=== PATIENT | female | born 1950 | race Caucasian/White ===

== ENCOUNTER 2021-09-10 21:25 | Inpatient (IN) | payer MEDICARE ==
[~2021-09-10] VITALS: Ht 162.6 cm; Wt 150.6 kg
[2021-09-10] MEDS ORDERED: IV NORMAL SALINE 1000ML BAG 1,000 ML IV ONE (22:00)
[2021-09-10] MEDS ORDERED: ACETAMINOPHEN 500 MG TABLET PO ONE (22:30)
[2021-09-10 22:32] LABS: BASO # 0.2 x10^3/uL (0.0-0.2); BASO % 1 % (0-3); EOS # 0.1 x10^3/uL (0.0-0.7); EOS % 0 % (0-3); HEMATOCRIT 37.3 % (36.0-47.0); HEMOGLOBIN 12.3 g/dL (12.0-15.5); LYMPH # 0.4 x10^3/uL (1.0-4.8); LYMPH % 2 % (24-48); MEAN CORPUSCULAR HEMOGLOBIN 28 pg (25-35); MEAN CORPUSCULAR HGB CONC 33 g/dL (31-37); MEAN CORPUSCULAR VOLUME 86 fL (79-100); MONO # 0.5 x10^3/uL (0.0-1.1); MONO % 2 % (0-9); NEUT # 23.1 x10^3/uL (1.8-7.7); NEUT % 95 % (31-73); PLATELET COUNT 293 x10^3/uL (140-400); RED BLOOD COUNT 4.36 x10^6/uL (3.50-5.40); RED CELL DISTRIBUTION WIDTH 17.3 % (11.5-14.5); WHITE BLOOD COUNT 24.3 x10^3/uL (4.0-11.0)
--- NOTE | 2021-09-10 22:41 | RAD ---
Exam: Chest one view INDICATION: Altered mental status TECHNIQUE: Frontal view of the chest Comparisons: None FINDINGS: The cardiomediastinal silhouette and pulmonary vessels are within normal limits. There is elevation of the right hemidiaphragm. No pleural effusion. IMPRESSION: No acute pulmonary process. Electronically signed by: Jerri Bateman MD (09/10/2021 10:38 PM) DAIJA
[2021-09-10] MEDS ORDERED: PIPERACILLIN/TAZOBACTAM 3.375 GM in IV NORMAL SALINE 50ML 50 ML IV ONE (22:45)
[2021-09-10 22:46] LABS: CALCIUM 8.9 mg/dL (8.5-10.1); CREATININE 1.5 mg/dL (0.6-1.0); GFR 34.4; POTASSIUM 3.7 mmol/L (3.5-5.1)
[2021-09-10 22:48] LABS: BASE EXCESS COOX 5 mmol/L (-3-3); CORRECTED PCO2 COOX 42 mmHg; CORRECTED PH COOX 7.45; CORRECTED PO2 COOX 81 mmHg; HCO3 COOX 28 mmol/L (21-28); METHEMOGLOBIN 0.2 % (0.0-1.9); OXYHEMOGLOBIN 93.6 %; SAT O2 COOX 94 % (92-99)
[2021-09-10 22:48] LABS: PROTHROMBIN TIME PATIENT 14.5 SEC (11.7-14.0)
[2021-09-10 22:54] LABS: BACTERIA,URINE FEW /HPF (0-FEW); HYALINE CASTS, URINE MODERATE /HPF; RBC,URINE 0 /HPF (0-2); WBC,URINE OCC /HPF (0-4)
[2021-09-10] MEDS ORDERED: VANCOMYCIN 2 GM in IV NORMAL SALINE 500ML BAG 500 ML IV ONE (23:00)
[2021-09-10 23:01] LABS: ALBUMIN 3.1 g/dL (3.4-5.0); ALBUMIN/GLOBULIN RATIO 0.7 (1.0-1.7); TOTAL BILIRUBIN 0.7 mg/dL (0.2-1.0); TOTAL PROTEIN 7.8 g/dL (6.4-8.2)
--- NOTE | 2021-09-11 | PHYS DOC ---
Past Medical History Past Surgical History: Other Additional Past Surgical Histo: UNKNOWN AT THIS TIME (WILBERTO MCNEIL APRN) Smoking Status: Unknown if ever smoked Alcohol Use: None (WILBERTO MCNEIL APRN) General Adult EDM: Chief Complaint: ALTERED MENTAL STATUS HPI: HPI: Patient is a 71-year-old female with brought to the emergency department by EMS transport from [facility] for altered mental status per supervisor building maintenance transport report. Interlocker did not have any further healthcare report to give. States they were not given a full report from long term staff prior to transfer to the emergency department. Patient is on 4 L per nasal cannula, supervisor building maintenance reports this is her normal oxygen regimen. Patient is alert to self only. Patient denies complaints of pain or discomfort. Per long term record patient has a history of type 2 diabetes, severe obesi ty, hypertension, hyperlipidemia, restless leg syndrome, depressive disorder, asthma, chronic kidney disease, cellulitis of the lower extremities, unsteadiness on feet, need for assistance with personal care and ADLs, difficulty in walking, vaginal Puja's, pain in left foot. Per patient's brother who is at bedside patient was admitted to the rehab facility from her home for cellulitis of bilateral lower extremities, and difficulty walking. Patient's brother states that her cellulitis seems to look worse than normal. (WILBERTO MCNEIL APRN) Review of Systems: Review of Systems: 14 body systems of review of systems have been reviewed. See HPI for pertinent positives and negative responses, otherwise all other systems are negative, nonpertinent or noncontributory. Constitutional: Negative except as outlined in HPI above. Skin: Negative except as outlined in HPI above. Eyes: Negative except as outlined in HPI above. HENT: Negative except as outlined in HPI above. Respiratory: Negative except as outlined in HPI above. Cardiovascular: Negative except as outlined in HPI above. GI: Negative except as outlined in HPI above. : Negative except as outlined in HPI above. Musculoskeletal: Negative except as outlined in HPI above. Integument: Negative except as outlined in HPI above. Neurologic: Negative except as outlined in HPI above. Endocrine: Negative except as outlined in HPI above. Lymphatic: Negative except as outlined in HPI above. Psychiatric: Negative except as outlined in HPI above. (WILBERTO MCNEIL APRN) Heart Score: C/O Chest Pain: No Risk Factors: Risk Factors: DM, Current or recent (<one month) smoker, HTN, HLP, family hi story of CAD, obesity. Risk Scores: Score 0 - 3: 2.5% MACE over next 6 weeks - Discharge Home Score 4 - 6: 20.3% MACE over next 6 weeks - Admit for Clinical Observation Score 7 - 10: 72.7% MACE over next 6 weeks - Early Invasive Strategies (WILBERTO MCNEIL APRN) Current Medications: Current Medications Medications (Trade) Dose Ordered Sig/Moiz Start Time Stop Time Status Last Admin Dose Admin Acetaminophen (Tylenol) 1,000 mg 1X ONCE 09/10/21 22:30 09/10/21 22:31 DC 09/10/21 22:30 1,000 MG Piperacillin Sod/ Tazobactam Sod 3.375 gm/Sodium Chloride 50 ml @ 100 mls/hr 1X ONCE 09/10/21 22:45 09/10/21 23:14 DC 09/10/21 23:44 100 MLS/HR Sodium Chloride 1,000 ml @ 1,000 mls/hr 1X ONCE 09/10/21 22:00 09/10/21 22:59 DC 09/10/21 22:22 1,000 MLS/HR Vancomycin HCl (Vanco Per Pharmacy) 1 each PRN DAILY PRN 09/10/21 22:45 Vancomycin HCl 2 gm/Sodium Chloride 500 ml @ 250 mls/hr ONCE ONCE 09/10/21 23:00 09/11/21 00:59 (WILBERTO MCNEIL APRN) Allergies: Allergies: Allergies Coded Allergies Type Severity Reaction Last Updated Verified No Known Drug Allergies 09/10/21 No (WILBERTO MCNEIL APRN) Physical Exam: PE: Constitutional: Well developed, well nourished, no acute distress, non-toxic appearance. 71-year-old female in no apparent distress. HENT: Normocephalic, atraumatic. Oropharynx is nonerythematous, no deep tissue infectious process appreciated, oral mucosa is sticky, bilateral TMs are intact and within normal limits. Patient is speaking in normal voice tones. Eyes: Conjunctiva normal, no discharge. No scleral icterus appreciated. Neck: Normal range of motion, no stridor. There is no nuchal rigidity, no meningismus signs. Cardiovascular: No cyanosis appreciated, distal cap refill less than 2 seconds. Tachycardic heart rate Lungs & Thorax: Patient is in no respiratory distress, no audible adventitious lung sounds appreciated. Lung sounds are clear to auscultation all lung rueda. Abdomen: Nontender, no abnormalities noted. Abdomen round, soft, severe obesity, BMI 68.8 Skin: Warm, dry, no erythema, no rash. See extremity note for focused skin examination. Back: No tenderness, no deformities. Extremities: No tenderness, no cyanosis, no clubbing, ROM intact, no edema. Bilateral lower extremities edematous, erythematous, will hot to touch, has bandages from cellulitis treatment at rehab center. 1+ dorsalis pedal pulses bilaterally, distal cap refill less than 2 seconds bilateral lower extremities. Neurologic: Alert and oriented X 3, normal motor function, normal sensory function, no focal deficits noted. Psychologic: Affect normal, judgement normal, mood normal. (WILBERTO MCNEIL APRN) Current Patient Data: Labs: Laboratory Tests Test 09/10/21 21:40 09/10/21 22:18 09/10/21 22:30 09/10/21 22:35 Urine Collection Type U cath Urine Color (Auto) Yellow Urine Turbidity Hazy Urine pH (Auto) 5.0 (<5.0-8.0) Urine Specific Yolyn 1.022 (1.000-1.030) Urine Protein (Auto) Negative mg/dL (Negative) Urine Glucose (Auto)(UA) Negative mg/dL (Negative) Urine Ketones (Auto) Trace mg/dL (Negative) Urine Blood (Auto) Negative (Negative) Urine Nitrite Negative (Negative) Urine Bilirubin (Auto) Negative (Negative) Urine Urobilinogen (Auto) Normal mg/dL (Normal) Urine Leukocyte Esterase (Auto) Negative (Negative) Urine RBC 0 /HPF (0-2) Urine WBC Occ /HPF (0-4) Urine Squamous Epithelial Cells Mod /LPF Urine Bacteria Few /HPF (0-FEW) Urine Hyaline Casts Moderate /HPF Urine Mucus Marked /LPF White Blood Count 24.3 x10^3/uL (4.0-11.0) H Red Blood Count 4.36 x10^6/uL (3.50-5.40) Hemoglobin 12.3 g/dL (12.0-15.5) Hematocrit 37.3 % (36.0-47.0) Mean Corpuscular Volume 86 fL (79-100) Mean Corpuscular Hemoglobin 28 pg (25-35) Mean Corpuscular Hemoglobin Concent 33 g/dL (31-37) Red Cell Distribution Width 17.3 % (11.5-14.5) H Platelet Count 293 x10^3/uL (140-400) Neutrophils (%) (Auto) 95 % (31-73) H Lymphocytes (%) (Auto) 2 % (24-48) L Monocytes (%) (Auto) 2 % (0-9) Eosinophils (%) (Auto) 0 % (0-3) Basophils (%) (Auto) 1 % (0-3) Neutrophils # (Auto) 23.1 x10^3/uL (1.8-7.7) H Lymphocytes # (Auto) 0.4 x10^3/uL (1.0-4.8) L Monocytes # (Auto) 0.5 x10^3/uL (0.0-1.1) Eosinophils # (Auto) 0.1 x10^3/uL (0.0-0.7) Basophils # (Auto) 0.2 x10^3/uL (0.0-0.2) Prothrombin Time 14.5 SEC (11.7-14.0) H Prothrombin Time INR 1.2 (0.8-1.1) H Sodium Level 139 mmol/L (136-145) Potassium Level 3.7 mmol/L (3.5-5.1) Chloride Level 97 mmol/L (98-107) L Carbon Dioxide Level 31 mmol/L (21-32) Anion Gap 11 (6-14) Blood Urea Nitrogen 24 mg/dL (7-20) H Creatinine 1.5 mg/dL (0.6-1.0) H Estimated GFR (Cockcroft-Gault) 34.4 BUN/Creatinine Ratio 16 (6-20) Glucose Level 141 mg/dL (70-99) H Lactic Acid Level 2.6 mmol/L (0.4-2.0) H Calcium Level 8.9 mg/dL (8.5-10.1) Total Bilirubin 0.7 mg/dL (0.2-1.0) Aspartate Amino Transferase (AST) 22 U/L (15-37) Alanine Aminotransferase (ALT) 19 U/L (14-59) Alkaline Phosphatase 86 U/L (46-116) Creatine Kinase 194 U/L (26-192) H SJ-Vvy-E-Type Natriuretic Peptide 504 pg/mL (0-124) H Total Protein 7.8 g/dL (6.4-8.2) Albumin 3.1 g/dL (3.4-5.0) L Albumin/Globulin Ratio 0.7 (1.0-1.7) L Lipase 97 U/L (73-393) Troponin I High Sensitivity 47 ng/L (4-50) O2 Saturation 94 % (92-99) Arterial Blood pH Pending Arterial Blood pH (Temp corrected) 7.45 Arterial Blood pCO2 at Patient Temp Pending Arterial Blood pCO2 (Temp correct) 42 mmHg Arterial Blood pO2 at Patient Temp Pending Arterial Blood pO2 (Temp corrected) 81 mmHg Arterial Blood HCO3 28 mmol/L (21-28) Arterial Blood Base Excess 5 mmol/L (-3-3) H Oxyhemoglobin 93.6 % Methemoglobin 0.2 % (0.0-1.9) Carbon Monoxide, Quantitative 0.4 % (0.0-1.9) FiO2 36 Test 09/10/21 22:45 Ammonia < 10 mcmol/L (11-34) L Laboratory Tests 09/10/21 22:18 Laboratory Tests 09/10/21 22:18 Vital Signs: Vital Signs Date Time Temp Pulse Resp B/P (MAP) Pulse Ox O2 Delivery O2 Flow Rate FiO2 09/10/21 21:32 103.3 111 42 155/74 (101) 96 Nasal Cannula 4.0 103.3 (IWLBERTO MCNEIL APRN) EKG: EKG: EKG performed at 2237 incomprehensible, needs repeated. (WILBERTO MCNEIL APRN) Radiology/Procedures: Radiology/Procedures: REASON: Altered mental status PROCEDURE: PORTABLE CHEST 1V Exam: Chest one view INDICATION: Altered mental status TECHNIQUE: Frontal view of the chest Comparisons: None FINDINGS: The cardiomediastinal silhouette and pulmonary vessels are within normal limits. There is elevation of the right hemidiaphragm. No pleural effusion. IMPRESSION: No acute pulmonary process. Electronically signed by: Jerri Bateman MD (09/10/2021 10:38 PM) [facility] STATUS: REG ER ORD. PHYSICIAN: WILBERTO MCNEIL APRN REASON: Altered mental status PROCEDURE: CT HEAD WO CONTRAST INDICATION: Reason: Altered mental status / Spl. Instructions: / History: COMPARISON: None. TECHNIQUE: Axial CT images obtained through the head without intravenous contrast. One or more of the following individualized dose reduction techniques were utilized for this examination: 1. Automated exposure control; 2. Adjustment of the mA and/or kV according to patient size; 3. Use of iterative reconstruction technique. FINDINGS: No intracranial hemorrhage. No significant midline shift. Ventricles and sulci are globally prominent. Scattered foci of low attenuation within the white matter. IMPRESSION: * No acute intracranial hemorrhage. * Scattered regions of low attenuation within the white matter. Non-specific in nature but a common finding and frequently secondary to small vessel ischemic disease. * Prominence of ventricles and sulci which can be seen with age-related volume loss. * Some regions are limited secondary to patient motion. Electronically signed by: Tee Staley MD (09/11/2021 12:05 AM) [id number] (WILBERTO MCNEIL APRN) Course & Med Decision Making: Course & Med Decision Making Pertinent Labs and Imaging studies reviewed. (See chart for details) 71-year-old female, vital signs reviewed, presents to the emergency department f or altered mental status. Physical examination concerning as patient has altered mental status, patient does have fever 103.4 axillary, patient has excoriated. Area, bilateral lower extremities below knees are reddened full circumferential, patient is being treated for cellulitis at rehab center. Will order septic work-up. IV saline, p.o. Tylenol for fever. Upon reevaluation of patient, patient's fever is 100.4, patient remains tachycardic at 103 bpm, other vital signs are within normal limits, patient remains at 96% on her 4 L per nasal cannula home dosing regimen, patient's labs concerning for sepsis, patient's urine is not infected, suspicious for cellulitis as source. The patient's chest x-ray and CT head were nonconcerning. Zosyn and vancomycin per pharmacy were ordered by ED attending physician Dr. Salinas. Discussed with patient and patient's brother at bedside recommended a dmission to telemetry unit, patient and patient's brother are amenable to admission planning. Patient will be admitted to inpatient management physician Dr. Benjamin. Patient is currently awaiting telemetry bed assignment from warehouse packer, EKG pending. (WILBERTO MCNEIL APRN) Dragon Disclaimer: Dragon Disclaimer: This electronic medical record was generated, in whole or in part, using a voice recognition dictation system. (WILBERTO MCNEIL APRN) Departure Departure Impression: Primary Impression: Sepsis Qualified Codes: A41.9 - Sepsis, unspecified organism Additional Impressions: AMS (altered mental status) Qualified Codes: R41.82 - Altered mental status, unspecified Bilateral lower leg cellulitis Disposition: ADMITTED INPATIENT Admitting Physician: HIMCaden (Admit to telemetry unit to Dr. Benjamin.) (WILBERTO MCNEIL APRN) Admitting Physician: ROSMERY (Dr. Brizuela) (CANDY SALINAS DO) Condition: GUARDED Referrals: [facility] APRN (PCP) WILBERTO MCNEIL APRN September 11, 2021 00:00 CANDY SALINAS DO September 11, 2021 03:56
[2021-09-11 00:05] LABS: INFLUENZA A PATIENT NEGATIVE (NEGATIVE); INFLUENZA B PATIENT NEGATIVE (NEGATIVE)
--- NOTE | 2021-09-11 00:08 | RAD ---
INDICATION: Reason: Altered mental status / Spl. Instructions: / History: COMPARISON: None. TECHNIQUE: Axial CT images obtained through the head without intravenous contrast. One or more of the following individualized dose reduction techniques were utilized for this examinat ion: 1. Automated exposure control; 2. Adjustment of the mA and/or kV according to patient size; 3 . Use of iterative reconstruction technique. FINDINGS: No intracranial hemorrhage. No significant midline shift. Ventricles and sulci are globally prominent. Scattered foci of low attenuation within the white matter. IMPRESSION: * No acute intracranial hemorrhage. * Scattered regions of low attenuation within the white matter. Non-specific in nature but a common finding and frequently secondary to small vessel ischemic disease. * Prominence of ventricles and sulci which can be seen with age-related volume loss. * Some regions are limited secondary to patient motion. Electronically signed by: Tee Staley MD (09/11/2021 12:05 AM) [id number]
[2021-09-11] MEDS ORDERED: ACETAMINOPHEN 325 MG TABLET. PO PRN (00:30)
[2021-09-11] MEDS ORDERED: IV NORMAL SALINE 1000ML BAG 1,000 ML IV SCH (00:30)
[2021-09-11 03:00] VITALS: BP 139/68
[2021-09-11] MEDS: VANCOMYCIN PER PHARMACY MC PRN (03:25)
--- NOTE | 2021-09-11 03:26 | NUR ---
Pharmacy Vancomycin Dosing Note S:Consulted to monitor and dose vancomycin started 09/10/21. O:RADHA SOLIS is a 71 year old F with Cellulitis Sepsis . Height: 5 feet, 4 inches Weight: 181.8 kg [place] Body Weight: 54.70 Adjusted Body Weight: 105.54 Dosing Weight: Other Antibiotics: ZOSYN 3.375 X 1 09/10 LABS: Last BUN: 24 Last Creatinine: 1.5 Creatinine Clearance: 58 mL/min Last WBC: 24.3 Last Procalcitonin: Tmax (past 24 hours): 103.3 Microbiology: 09/10 BCX PENDING I/O: Drug Levels: Last level: on at Last dose given 09/11/21 at 0100 Vancomycin Dosing: Loading Dose: 2000 mg x1 Dosing Weight: Target Trough: 15-20 A: Based on: WEIGHT/RENAL FUNCTION AND USING ONLINE DOSING CALCULATOR, P: 1. INITIATE Vancomycin 1500 mg IV q18h AFTER 2000 MG LOADING DOSE 2. Follow up Trough level on 09/12/21 at 1230 3. Pharmacy will continue to monitor, follow and adjust therapy as needed. LUIS PEPE [facility], 09/11/21 [id number]
--- NOTE | 2021-09-11 05:51 | EKG ---
[facility] [address] [place] [address] Test Date: 2021-09-11 Test Time: 00:26:04 Pat Name: RADHA SOLIS Department: Room: [facility] Gender: F Care Team Coordinator Scheduler: : 1950 Requested By: WILBERTO MCNEIL Order Number: [id number] Reading MD: Cm Maguire MD Measurements Intervals [place] Rate: 108 P: 28 [place]: 170 QRS: -35 QRSD: 80 T: 34 QT: 304 QTc: 411 Interpretive Statements SINUS TACHYCARDIA Atrial fibrillation with rapid ventricular response Electronically Signed On 09-18-2021 9:45:51 CDT by Cm Maguire MD
[2021-09-11] MEDS ORDERED: DOCU-109 PO (06:34)
[2021-09-11] MEDS ORDERED: CARV6.2511 PO (06:34)
[2021-09-11] MEDS ORDERED: EZET10TA20 PO (06:34)
[2021-09-11] MEDS ORDERED: fentaNYL PF VIAL 100 MCG/2 ML VIAL IVP PRN (06:45)
[2021-09-11] MEDS ORDERED: ONDANSETRON PF 4 MG/2 ML VIAL. IVP PRN (06:45)
[2021-09-11] MEDS ORDERED: DEXTROSE 50% 25 GM / 50ML DISP.SYRIN. IV PRN (06:45)
[2021-09-11] MEDS ORDERED: IV DEXTROSE 5% 250 ML BAG. IV PRN (06:45)
[2021-09-11 07:00] VITALS: BP 157/70
[2021-09-11] MEDS ORDERED: ONDA4TAB12 PO (07:22)
[2021-09-11] MEDS ORDERED: TAMO20TA PO (07:22)
[2021-09-11] MEDS ORDERED: HYDR-2765 PO (07:22)
[2021-09-11] MEDS ORDERED: VENL75CA6 PO (07:22)
[2021-09-11] MEDS ORDERED: ROPI1TAB4 PO (07:22)
[2021-09-11] MEDS ORDERED: TAMS0.4C97 PO (07:22)
[2021-09-11] MEDS ORDERED: LIDO1ADH63 TP (07:22)
[2021-09-11] MEDS ORDERED: FURO-68 PO (07:22)
[2021-09-11] MEDS ORDERED: SENN8.6T11 PO (07:22)
[2021-09-11] MEDS: INSULIN LISPRO 300 UNITS/3 ML VIAL. SQ SCH ×4 (07:30→21:00)
[2021-09-11] MEDS: LIDOCAINE (700MG/PATCH) PATCH. TP SCH ×2 (10:00→11:55)
--- NOTE | 2021-09-11 10:11 | PDOC1 ---
History and Physical Date of Service: DOS: DATE: 09/11/21 TIME: 10:11 Chief Complaint: Chief Complain: AMS, fever, ble wounds History of Present Illness: HPI: Patient is 71-year-old white female sent to the emergency room overnight from a [facility] due to altered mental status fever and sepsis. Patient has been admitted to the healthcare resort since early June for rehab, wound care and IV antibiotics for a chronic cellulitis. Patient unaware what antibiotic she is on could not find in records but she was certain it is an IV antibiotic. No PICC line in place. Apparently yesterday patient was notably altered febrile and requiring oxygen which is not normal for her. Was sent over to the emergency room. No much history will be obtained in the emergency room due to her mental status. I saw her this morning she was alert oriented x3. Complaining of pain all over. Does not remember much from yesterday. Reported to me she was initially sent to healthcare resort from [facility] few months ago. Has been on antibiotics with wound care and therapy but says she is not getting any better. Past Medical/Surgical History: PMH/PSH: type 2 diabetes, severe obesity, hypertension, hyperlipidemia, restless leg syndrome, depressive disorder, asthma, chronic kidney disease, cellulitis of the lower extremities, unsteadiness on feet Allergies: Allergies: Coded Allergies: No Known Drug Allergies (Unverified , 09/10/21) Family History: Family History: Diabetes Social History: Social History: Denies alcohol tobacco drug use Current Medications: Current Medications Current Medications Sodium Chloride 1,000 ml @ 1,000 mls/hr 1X ONCE IV Last administered on 09/10/21at 22:22; Start 09/10/21 at 22:00; Stop 09/10/21 at 22:59; Status DC Acetaminophen (Tylenol) 1,000 mg 1X ONCE PO Last administered on 09/10/21at 22:30; Start 09/10/21 at 22:30; Stop 09/10/21 at 22:31; Status DC Piperacillin Sod/ Tazobactam Sod 3.375 gm/Sodium Chloride 50 ml @ 100 mls/hr 1X ONCE IV Last administered on 09/10/21at 23:44; Start 09/10/21 at 22:45; Stop 09/10/21 at 23:14; Status DC Vancomycin HCl (Vanco Per Pharmacy) 1 each PRN DAILY PRN MC SEE COMMENTS Last administered on 09/11/21at 03:25; Start 09/10/21 at 22:45 Vancomycin HCl 2 gm/Sodium Chloride 500 ml @ 250 mls/hr ONCE ONCE IV Last administered on 09/10/21at 01:04; Start 09/10/21 at 23:00; Stop 09/11/21 at 00:59; Status DC Acetaminophen (Tylenol) 650 mg PRN Q4HRS PRN PO FEVER > 100.3'F; Start 09/11/21 at 00:30; Stop 09/12/21 at 00:29 Sodium Chloride 1,000 ml @ 1,650 mls/hr Q37M IV Last administered on 09/11/21at 00:30; Start 09/11/21 at 00:30; Stop 09/11/21 at 00:53; Status DC Vancomycin HCl 1.5 gm/Sodium Chloride 500 ml @ 250 mls/hr Q18H IV ; Start 09/11/21 at 19:00 Vancomycin HCl (Vancomycin Trough Level) 1 each 1X ONCE MC ; Start 09/12/21 at 12:30; Stop 09/12/21 at 12:31 Insulin Human Lispro (HumaLOG) 0-9 UNITS TIDACHC SQ ; Start 09/11/21 at 07:30 Dextrose (Dextrose 50%-Water Syringe) 12.5 gm PRN Q15MIN PRN IV SEE COMMENTS; Start 09/11/21 at 06:45 Dextrose (Iv Dextrose 5%) 250 ml PRN Q15MIN PRN IV SEE COMMENTS; Start 09/11/21 at 06:45 Ondansetron HCl (Zofran) 4 mg PRN Q4HRS PRN IVP NAUSEA/VOMITING; Start 09/11/21 at 06:45 Olanzapine (ZyPREXA ZYDIS) 5 mg PRN BID PRN PO ANXIETY / AGITATION; Start 09/11/21 at 06:45 Tramadol HCl (Ultram) 50 mg PRN Q6HRS PRN PO PAIN; Start 09/11/21 at 06:45 Fentanyl Citrate (Fentanyl 2ml Vial) 25 mcg PRN Q3HRS PRN IVP SEVERE PAIN 7-10; Start 09/11/21 at 06:45 Carvedilol (Coreg) 6.25 mg BIDWMEALS PO ; Start 09/11/21 at 10:00 Docusate Sodium (Colace) 100 mg BID PO ; Start 09/11/21 at 21:00 EZETIMIBE (Zetia) 10 mg QHS PO ; Start 09/11/21 at 21:00 Furosemide (Lasix) 40 mg DAILY PO ; Start 09/11/21 at 10:00 Lidocaine (Lidoderm) 1 patch DAILY TP ; Start 09/11/21 at 10:00 Ropinirole HCl (Requip) 1 mg TID PO ; Start 09/11/21 at 10:00 Sennosides (Senna) 8.6 mg DAILY PO ; Start 09/11/21 at 10:00 Tamsulosin HCl (Flomax) 0.4 mg DAILY PO ; Start 09/11/21 at 10:00 Tamoxifen Citrate (Nolvadex) 20 mg DAILY PO ; Start 09/11/21 at 10:00 Venlafaxine HCl (Effexor Xr) 75 mg DAILY PO ; Start 09/11/21 at 10:00 Active Scripts Active Reported Venlafaxine Hcl Er (Venlafaxine Hcl) 75 Mg Cap.er.24h 1 Cap PO DAILY Flomax (Tamsulosin Hcl) 0.4 Mg Cap.er.24h 1 Cap PO DAILY Tamoxifen Citrate 20 Mg Tablet 1 Tab PO DAILY 30 Days Senna Laxative (Sennosides) 8.6 Mg Tablet 1 Tab PO DAILY 30 Days Ropinirole Hcl 1 Mg Tablet 1 Mg PO TID Ondansetron Odt (Ondansetron) 4 Mg Tab.rapdis 2 Tab PO PRN Q6-8HRS Lidocaine 1 Each Adh..patch 1 Each TP DAILY Lasix (Furosemide) 40 Mg Tablet 1 Tab PO DAILY 30 Days Hydrocodone-Apap 7.5-325 (Hydrocodone Bit/Acetaminophen) 1 Tab Tablet 1 Tab PO PRN Q6HRS PRN Zetia (Ezetimibe) 10 Mg Tablet 1 Tab PO QHS 30 Days Colace (Docusate Sodium) 100 Mg Capsule 1 Cap PO BID 30 Days Carvedilol (Carvedilol) 6.25 Mg Tablet 6.25 Mg PO BIDWMEALS ROS: Review of Systems Review of System Unless noted in HPI 14 point review systems was negative Physical Exam: Vital Signs: Vital Signs Date Time Temp Pulse Resp B/P (MAP) Pulse Ox O2 Delivery O2 Flow Rate FiO2 09/11/21 07:00 99.6 120 24 157/70 (99) 99 Nasal Cannula 4.0 99.6 Physcial Exam: GEN: No apparent distress. Alert and oriented very anxious HEENT: Normal cephalic, atraumatic, external auditory canals are patent EYES: Extraocular muscles are intact, pupil are equally round and reactive to light and accommodation MUSCULOSKELETAL: Limited range of motion, obese. ENDOCRINE: No thyromegaly was palpated LYMPHATICS: No cervical chain or axillary nodes were noted HEMATOPOIETIC: No bruising NECK: Supple, no JVD, no thyromegaly was noted LUNGS: Clear to auscultation in all lung rueda without rhonchi or wheezing HEART: RRR, S1, S2 present. Peripheral pulses intact, no obvious murmurs noted ABDOMEN: Soft, nontender. Positive bowel sounds, no organomegaly, normal bowel sounds EXTREMITIES: Lower extremity swollen and erythematous. Wounds wrapped up. Pictures from wound care noted. NEUROLOGIC: Normal speech and tone. A&O x 3, moves all extremities, no obvious focal deficits PSYCHIATRIC: Normal affect, normal mood. Stable SKIN: Wounds and erythema to the lower extremities VASCULAR: Good capillary refill, neurovascular bundle appears to be intact Labs: Labs: Laboratory Tests Test 09/10/21 21:40 09/10/21 22:18 09/10/21 22:30 09/10/21 22:35 Urine Collection Type U cath Urine Color (Auto) Yellow Urine Turbidity Hazy Urine pH (Auto) 5.0 (<5.0-8.0) Urine Specific [place] 1.022 (1.000-1.030) Urine Protein (Auto) Negative mg/dL (Negative) Urine Glucose (Auto)(UA) Negative mg/dL (Negative) Urine Ketones (Auto) Trace mg/dL (Negative) Urine Blood (Auto) Negative (Negative) Urine Nitrite Negative (Negative) Urine Bilirubin (Auto) Negative (Negative) Urine Urobilinogen (Auto) Normal mg/dL (Normal) Urine Leukocyte Esterase (Auto) Negative (Negative) Urine RBC 0 /HPF (0-2) Urine WBC Occ /HPF (0-4) Urine Squamous Epithelial Cells Mod /LPF Urine Bacteria Few /HPF (0-FEW) Urine Hyaline Casts Moderate /HPF Urine Mucus Marked /LPF White Blood Count 24.3 x10^3/uL (4.0-11.0) Red Blood Count 4.36 x10^6/uL (3.50-5.40) Hemoglobin 12.3 g/dL (12.0-15.5) Hematocrit 37.3 % (36.0-47.0) Mean Corpuscular Volume 86 fL (79-100) Mean Corpuscular Hemoglobin 28 pg (25-35) Mean Corpuscular Hemoglobin Concent 33 g/dL (31-37) Red Cell Distribution Width 17.3 % (11.5-14.5) Platelet Count 293 x10^3/uL (140-400) Neutrophils (%) (Auto) 95 % (31-73) Lymphocytes (%) (Auto) 2 % (24-48) Monocytes (%) (Auto) 2 % (0-9) Eosinophils (%) (Auto) 0 % (0-3) Basophils (%) (Auto) 1 % (0-3) Neutrophils # (Auto) 23.1 x10^3/uL (1.8-7.7) Lymphocytes # (Auto) 0.4 x10^3/uL (1.0-4.8) Monocytes # (Auto) 0.5 x10^3/uL (0.0-1.1) Eosinophils # (Auto) 0.1 x10^3/uL (0.0-0.7) Basophils # (Auto) 0.2 x10^3/uL (0.0-0.2) Prothrombin Time 14.5 SEC (11.7-14.0) Prothromb Time International Ratio 1.2 (0.8-1.1) Sodium Level 139 mmol/L (136-145) Potassium Level 3.7 mmol/L (3.5-5.1) Chloride Level 97 mmol/L (98-107) Carbon Dioxide Level 31 mmol/L (21-32) Anion Gap 11 (6-14) Blood Urea Nitrogen 24 mg/dL (7-20) Creatinine 1.5 mg/dL (0.6-1.0) Estimated GFR (Cockcroft-Gault) 34.4 BUN/Creatinine Ratio 16 (6-20) Glucose Level 141 mg/dL (70-99) Lactic Acid Level 2.6 mmol/L (0.4-2.0) Calcium Level 8.9 mg/dL (8.5-10.1) Total Bilirubin 0.7 mg/dL (0.2-1.0) Aspartate Amino Transf (AST/SGOT) 22 U/L (15-37) Alanine Aminotransferase (ALT/SGPT) 19 U/L (14-59) Alkaline Phosphatase 86 U/L (46-116) Creatine Kinase 194 U/L (26-192) AT-Edw-Z-Type Natriuretic Peptide 504 pg/mL (0-124) Total Protein 7.8 g/dL (6.4-8.2) Albumin 3.1 g/dL (3.4-5.0) Albumin/Globulin Ratio 0.7 (1.0-1.7) Lipase 97 U/L (73-393) Troponin I High Sensitivity 47 ng/L (4-50) O2 Saturation 94 % (92-99) Arterial Blood pH (Temp corrected) 7.45 Arterial Blood pCO2 (Temp correct) 42 mmHg Arterial Blood pO2 (Temp corrected) 81 mmHg Arterial Blood HCO3 28 mmol/L (21-28) Arterial Blood Base Excess 5 mmol/L (-3-3) Oxyhemoglobin 93.6 % Methemoglobin 0.2 % (0.0-1.9) Carbon Monoxide, Quantitative 0.4 % (0.0-1.9) FiO2 36 Test 09/10/21 22:45 09/10/21 23:42 09/11/21 01:30 09/11/21 08:58 Ammonia < 10 mcmol/L (11-34) Influenza Type A Antigen Negative (NEGATIVE) Influenza Type B Antigen Negative (NEGATIVE) SARS-CoV-2 Antigen (Rapid) Negative (NEGATIVE) Lactic Acid Level 1.9 mmol/L (0.4-2.0) Glucose (Fingerstick) 134 mg/dL (70-99) Laboratory Tests Test 09/10/21 21:40 09/10/21 22:18 09/10/21 22:30 09/10/21 22:35 Urine Collection Type U cath Urine Color (Auto) Yellow Urine Turbidity Hazy Urine pH (Auto) 5.0 (<5.0-8.0) Urine Specific [place] 1.022 (1.000-1.030) Urine Protein (Auto) Negative mg/dL (Negative) Urine Glucose (Auto)(UA) Negative mg/dL (Negative) Urine Ketones (Auto) Trace mg/dL (Negative) Urine Blood (Auto) Negative (Negative) Urine Nitrite Negative (Negative) Urine Bilirubin (Auto) Negative (Negative) Urine Urobilinogen (Auto) Normal mg/dL (Normal) Urine Leukocyte Esterase (Auto) Negative (Negative) Urine RBC 0 /HPF (0-2) Urine WBC Occ /HPF (0-4) Urine Squamous Epithelial Cells Mod /LPF Urine Bacteria Few /HPF (0-FEW) Urine Hyaline Casts Moderate /HPF Urine Mucus Marked /LPF White Blood Count 24.3 x10^3/uL (4.0-11.0) Red Blood Count 4.36 x10^6/uL (3.50-5.40) Hemoglobin 12.3 g/dL (12.0-15.5) Hematocrit 37.3 % (36.0-47.0) Mean Corpuscular Volume 86 fL (79-100) Mean Corpuscular Hemoglobin 28 pg (25-35) Mean Corpuscular Hemoglobin Concent 33 g/dL (31-37) Red Cell Distribution Width 17.3 % (11.5-14.5) Platelet Count 293 x10^3/uL (140-400) Neutrophils (%) (Auto) 95 % (31-73) Lymphocytes (%) (Auto) 2 % (24-48) Monocytes (%) (Auto) 2 % (0-9) Eosinophils (%) (Auto) 0 % (0-3) Basophils (%) (Auto) 1 % (0-3) Neutrophils # (Auto) 23.1 x10^3/uL (1.8-7.7) Lymphocytes # (Auto) 0.4 x10^3/uL (1.0-4.8) Monocytes # (Auto) 0.5 x10^3/uL (0.0-1.1) Eosinophils # (Auto) 0.1 x10^3/uL (0.0-0.7) Basophils # (Auto) 0.2 x10^3/uL (0.0-0.2) Prothrombin Time 14.5 SEC (11.7-14.0) Prothromb Time International Ratio 1.2 (0.8-1.1) Sodium Level 139 mmol/L (136-145) Potassium Level 3.7 mmol/L (3.5-5.1) Chloride Level 97 mmol/L (98-107) Carbon Dioxide Level 31 mmol/L (21-32) Anion Gap 11 (6-14) Blood Urea Nitrogen 24 mg/dL (7-20) Creatinine 1.5 mg/dL (0.6-1.0) Estimated GFR (Cockcroft-Gault) 34.4 BUN/Creatinine Ratio 16 (6-20) Glucose Level 141 mg/dL (70-99) Lactic Acid Level 2.6 mmol/L (0.4-2.0) Calcium Level 8.9 mg/dL (8.5-10.1) Total Bilirubin 0.7 mg/dL (0.2-1.0) Aspartate Amino Transf (AST/SGOT) 22 U/L (15-37) Alanine Aminotransferase (ALT/SGPT) 19 U/L (14-59) Alkaline Phosphatase 86 U/L (46-116) Creatine Kinase 194 U/L (26-192) KW-Hin-C-Type Natriuretic Peptide 504 pg/mL (0-124) Total Protein 7.8 g/dL (6.4-8.2) Albumin 3.1 g/dL (3.4-5.0) Albumin/Globulin Ratio 0.7 (1.0-1.7) Lipase 97 U/L (73-393) Troponin I High Sensitivity 47 ng/L (4-50) O2 Saturation 94 % (92-99) Arterial Blood pH (Temp corrected) 7.45 Arterial Blood pCO2 (Temp correct) 42 mmHg Arterial Blood pO2 (Temp corrected) 81 mmHg Arterial Blood HCO3 28 mmol/L (21-28) Arterial Blood Base Excess 5 mmol/L (-3-3) Oxyhemoglobin 93.6 % Methemoglobin 0.2 % (0.0-1.9) Carbon Monoxide, Quantitative 0.4 % (0.0-1.9) FiO2 36 Test 09/10/21 22:45 09/10/21 23:42 09/11/21 01:30 09/11/21 08:58 Ammonia < 10 mcmol/L (11-34) Influenza Type A Antigen Negative (NEGATIVE) Influenza Type B Antigen Negative (NEGATIVE) SARS-CoV-2 Antigen (Rapid) Negative (NEGATIVE) Lactic Acid Level 1.9 mmol/L (0.4-2.0) Glucose (Fingerstick) 134 mg/dL (70-99) Assessment/Plan Assessment/Plan Sepsis likely secondary to ongoing cellulitis, inability to care for self. History of type 2 diabetes hypertension hyperlipidemia restless legs depression and CKD -Sent from [facility] resort overnight due to altered mental status sepsis febrile -Concern lower extremities however source of infection and wound care pictures noted. -Receiving Zosyn Vanc in emergency room continue this for now. She says she was getting antibiotics at healthcare resort but not sure which I cannot find in records -Wound care consult -If no improvement on current antibiotics consult to infectious disease -PT OT -DVT prophylaxis -Home meds resumed as indicated Discussed with bedside RN. Justifications for Admission Other Justification FLAKO PEPE MD September 11, 2021 10:11
[2021-09-11 11:00] VITALS: BP 177/57
--- NOTE | 2021-09-11 11:16 | NUR ---
SS following for discharge planning. SS reviewed pt chart and discussed with pt RN. Pt is [facility] resident from [facility], ; fax [phone]. COVID19 negative. Wound care consulted. Pt on IV Vancomycin. SS will continue to follow for discharge planning.
[2021-09-11] MEDS: VENLAFAXINE XR 37.5 MG CAP.ER.24H. PO SCH (11:51)
[2021-09-11] MEDS: SENNOSIDES 8.6 MG TABLET PO SCH (11:51)
[2021-09-11] MEDS: rOPINIRole 1 MG TABLET. PO SCH ×3 (11:51→20:58)
[2021-09-11] MEDS: CARVEDILOL 6.25 MG TABLET. PO SCH ×2 (11:52→16:31)
[2021-09-11] MEDS: FUROSEMIDE 40 MG TABLET. PO SCH (11:52)
[2021-09-11] MEDS: TAMSULOSIN 0.4 MG CAP.ER.24H. PO SCH (11:52)
[2021-09-11] MEDS: traMADol 50 MG TABLET PO PRN ×2 (11:54→20:03)
[2021-09-11] MEDS: HEPARIN for SUB-Q USE 5,000 UNIT/ML VIAL. SQ SCH ×2 (12:00→21:05)
[2021-09-11] MEDS: TAMOXIFEN 10 MG TABLET PO SCH (12:01)
[2021-09-11 13:46] LABS: CREATININE 1.3 mg/dL (0.6-1.0); GFR 40.6
[2021-09-11 15:00] VITALS: BP 98/36
--- NOTE | 2021-09-11 15:31 | NUR ---
Wound/Ostomy Care Wound Type/Assessment: Pt has open weeping areas to BLE from cellulitis. Cleansed, assessed, and redressed wounds. Pt has excoriation to coccyx area and redness under pannus. Pt states nystatin powder does not help yeast rash. Treatment Recommendations/Plan: Cleanse wounds, apply contact layer and ABD with kerlix to BLE. Change daily. Coccyx- apply barrier cream BID and PRN Education provided: WC POC and PU prevention Offloading surface/device: TQ2H, float heels Recommended Referrals/Tests: na Discharge Recommendations for dressings: see above.
[2021-09-11] MEDS: KETOCONAZOLE 2% TOPICAL CREAM 15GM TUBE. TP SCH (16:32)
[2021-09-11] MEDS: VANCOMYCIN 1.5 GM in IV NORMAL SALINE 500ML BAG 500 ML IV SCH (18:11)
[2021-09-11 19:00] VITALS: BP 111/53
[2021-09-11] MEDS: LACTOBACILLUS RHAMNOSUS GG 1 CAPSULE. PO SCH (20:58)
[2021-09-11] MEDS: EZETIMIBE 10 MG TABLET. PO SCH (20:58)
[2021-09-11] MEDS: DOCUSATE SODIUM 100 MG CAPSULE. PO SCH (20:59)
[2021-09-11 23:00] VITALS: BP 101/52
[2021-09-12 03:00] VITALS: BP 128/60
[2021-09-12] MEDS: HYDROcodone/APAP 5/325MG 1 TAB TABLET PO PRN ×2 (05:24→21:58)
[2021-09-12] MEDS: HEPARIN for SUB-Q USE 5,000 UNIT/ML VIAL. SQ SCH ×3 (06:02→22:07)
[2021-09-12 07:00] VITALS: BP 118/52
[2021-09-12] MEDS: INSULIN LISPRO 300 UNITS/3 ML VIAL. SQ SCH ×4 (07:30→21:00)
[2021-09-12] MEDS: LACTOBACILLUS RHAMNOSUS GG 1 CAPSULE. PO SCH ×2 (08:40→21:58)
[2021-09-12] MEDS: rOPINIRole 1 MG TABLET. PO SCH ×3 (08:40→21:58)
[2021-09-12] MEDS: CARVEDILOL 6.25 MG TABLET. PO SCH ×2 (08:41→18:04)
[2021-09-12] MEDS: SENNOSIDES 8.6 MG TABLET PO SCH (08:41)
[2021-09-12] MEDS: FUROSEMIDE 40 MG TABLET. PO SCH (08:41)
[2021-09-12] MEDS: DOCUSATE SODIUM 100 MG CAPSULE. PO SCH ×2 (08:41→21:58)
[2021-09-12] MEDS: TAMSULOSIN 0.4 MG CAP.ER.24H. PO SCH (08:42)
[2021-09-12] MEDS: KETOCONAZOLE 2% TOPICAL CREAM 15GM TUBE. TP SCH ×2 (08:42→21:58)
[2021-09-12] MEDS: VENLAFAXINE XR 37.5 MG CAP.ER.24H. PO SCH (08:42)
[2021-09-12] MEDS: TAMOXIFEN 10 MG TABLET PO SCH (08:47)
[2021-09-12] MEDS: LIDOCAINE (700MG/PATCH) PATCH. TP SCH (08:49)
[2021-09-12] MEDS ORDERED: KETOCONAZOLE 2% TOPICAL CREAM 15GM TUBE. TP SCH (09:00)
[2021-09-12 09:13] LABS: CREATININE 1.3 mg/dL (0.6-1.0); GFR 40.6
[2021-09-12] MEDS ORDERED: PIP/TAZO PER PHARMACY MC PRN (09:45)
[2021-09-12] MEDS: PIPERACILLIN/TAZOBACTAM 4.5 GM in IV NORMAL SALINE 100ML 100 ML IV SCH ×3 (10:22→23:58)
[2021-09-12 11:00] VITALS: BP 116/63
[2021-09-12] MEDS ORDERED: IPRATRPIUM/ALBUTEROL 0.5/2.5MG 3 ML NEBU. NEB ONE (12:30)
[2021-09-12 15:00] VITALS: BP 113/59
[2021-09-12 15:25] LABS: VANC TR 18.4 mcg/mL (10.0-20.0)
[2021-09-12] MEDS: VANCOMYCIN 1.5 GM in IV NORMAL SALINE 500ML BAG 500 ML IV SCH (15:42)
[2021-09-12] MEDS: VANCOMYCIN PER PHARMACY MC PRN (15:50)
--- NOTE | 2021-09-12 15:50 | CONS ---
DATE OF CONSULTATION: 09/12/2021 REFERRING PHYSICIAN: Dr. Cooney REASON FOR CONSULTATION: Gram-negative bacteremia. HISTORY OF PRESENT ILLNESS: A 71-year-old female was brought from [facility] due to altered mental status, fever and sepsis. The patient has chronic lower extremity wounds, which were getting worse with now blister formation. The patient had temperature of 103 with leukocytosis at 24K, lactate of 2.6, creatinine of 1.5. The patient was started on Zosyn. Blood cultures returned positive 05/16 for gram-negative ortega. ID consultation has been requested for antibiotic management. The patient underwent head CT due to altered mental status, which was negative for acute process. Chest x-ray did not reveal any acute process. Currently, the patient states, she feels better. She is sitting upright in chair, states pain is under control. Denies any headache, nausea, vomiting, diarrhea, abdominal pain, symptoms. Denies any shortness of breath or cough. Leg pain is under control. PAST MEDICAL HISTORY: Diabetes, severe obesity, hypertension, hyperlipidemia, restless leg syndrome, depression, asthma, CKD, cellulitis of both lower extremities, chronic unsteadiness on feet with lower extremity wounds present. ALLERGIES: No known drug allergies. FAMILY HISTORY: Diabetes. SOCIAL HISTORY: ETOH, alcohol, drug use. CURRENT MEDICATIONS: Zosyn, also received vancomycin one dose. Other medications reviewed in medication list. REVIEW OF SYSTEMS: Negative except for above in HPI. PHYSICAL EXAMINATION: VITAL SIGNS: Temperature 97.8, pulse 80, respiratory rate 18, blood pressure 116/63, oxygen saturation 96% on 2 liters O2 by nasal cannula. T-max 103.3. GENERAL: Alert, oriented x 3 female, sitting upright in chair, in no acute distress. HEENT: Normocephalic, atraumatic. Anicteric. No thrush. NECK: Supple. LUNGS: Clear. HEART: S1, S2. ABDOMEN: Soft, nontender, obese. Bowel sounds present. EXTREMITIES: Bilateral lower extremity swelling, erythema. Wounds wrapped. Pictures from wound care noted. There is superficial multiple blisters present, excoriation present. Coccyx skin breakdown noted. NEUROLOGIC: Alert and oriented x 3, grossly nonfocal. PSYCHIATRIC: Calm and cooperative. DERMATOLOGIC: Warm, dry, no generalized rash except for above. PIV clean. LABORATORY DATA: WBC 24.3, platelets 293, hemoglobin 12.3. Sodium 139, potassium 3.7, chloride 97, bicarb 31, BUN 24, creatinine 1.5. Lactate was 2.6, repeat is 1.9. Creatinine is still 1.3. Ammonia less than 10. IMAGIN. CT head noted. 2. Chest x-ray noted. MICROBIOLOGY: Blood culture 09/10/2021, 1 out of 4 bottles positive for gram-negative ortega. IMPRESSION: 1. Sepsis present on admission from gram-negative bacteremia. 2. Gram-negative bacteremia, 1/4 bottles present on admission. 3. Leukocytosis. 4. Fever. 5. Bilateral lower extremity wounds with possible secondary infection. 6. Bilateral lower extremity cellulitis. 7. Encephalopathy, likely metabolic, improving. RECOMMENDATIONS: 1. Continue Zosyn. 2. Follow up gram-negative ortega in blood cultures. 3. Continue supportive care. 4. Continue local wound care. 5. Continue supportive care. Thank you for allowing me to participate in this patient's care. If you have any questions, do not hesitate to contact me. ANAID/KIRSTIE/IFEOMA DR: Lam TID: [id number]
--- NOTE | 2021-09-12 15:52 | NUR ---
Pharmacy Vancomycin Dosing Note S:Consulted to monitor and dose vancomycin started 09/10/21. O:RADHA SOLIS is a 71 year old F with Cellulitis Sepsis . Height: 5 feet, 4 inches Weight: 150.481215 kg [place] Body Weight: 192.70 Adjusted Body Weight: 176.10 Dosing Weight: Other Antibiotics: ZOSYN 3.375 X 1 09/10 LABS: Last BUN: 24 Last Creatinine: 1.3 Creatinine Clearance: 58 mL/min Last WBC: 24.3 Last Procalcitonin: Tmax (past 24 hours): 103.3 Microbiology: 09/10 BCX PENDING I/O: Drug Levels: Last Trough level: 18.4 on 09/12/21 at 1330 Last dose given 09/11/21 at 0100 Vancomycin Dosing: Loading Dose: 2000 mg x1 Dosing Weight: Target Trough: 15-20 A: Based on: LEVEL P: 1. Continue Vancomycin 1500 mg IV q18h 2. Follow up Trough level NEEDED. 3. Pharmacy will continue to monitor, follow and adjust therapy as needed. ALPA QUIROS Ace, 09/12/21 1155
[2021-09-12] MEDS: traMADol 50 MG TABLET PO PRN (18:02)
[2021-09-12 19:00] VITALS: BP 123/65
[2021-09-12] MEDS: EZETIMIBE 10 MG TABLET. PO SCH (21:58)
--- NOTE | 2021-09-12 21:59 | PDOC ---
[employer] PROGRESS NOTE Date of Service DOS: DATE: 09/12/21 TIME: 21:57 Chief Complaint Chief Complaint Sepsis likely secondary to ongoing cellulitis, inability to care for self. History of type 2 diabetes hypertension hyperlipidemia restless legs depression and CKD -Sent from [facility] overnight due to altered mental status sepsis febrile -Concern lower extremities source of infection and wound care pictures noted. -Receiving Zosyn Vanc in emergency room continue this for now. She says she was getting antibiotics at healthcare resort but not sure which I cannot find in records -Wound care consult -If no improvement on current antibiotics consult to infectious disease --> GNR 05/16 bottle positive on 09/12, consult to ID, continue Zosyn -PT OT -DVT prophylaxis -Home meds resumed as indicated History of Present Illness History of Present Illness 09/12 Patient evaluated examined at bedside. She was in bed watching a movie on her tablet. Said overall feeling a little improved. Was complaining of feeling some chest congestion. We will see how she does with a one-time breathing treatment. 1 of 4 bottles positive for gram-negative rods on blood cultures for the results pending. We will at least go ahead and consult infectious disease regarding this. Discussed with bedside RN. Vitals/I&O Vitals/I&O: Vital Signs Date Time Temp Pulse Resp B/P (MAP) Pulse Ox O2 Delivery O2 Flow Rate FiO2 09/12/21 19:00 97.7 79 22 123/65 (84) 90 Nasal Cannula 4.0 97.7 I & O 09/11/21 09/11/21 09/12/21 15:00 23:00 07:00 Intake Total 0 ml 120 ml 0 ml Balance 0 ml 120 ml 0 ml Physical Exam General: Alert, Oriented X3, Cooperative Heart: Regular rate, Normal S1, Normal S2 Lungs: Clear Abdomen: Normal bowel sounds, Soft, No tenderness Extremities: Normal pulses Skin: Other (lower extremities wrapped due to chronic wounds, wound care images reviewed) Labs Labs: Laboratory Tests Test 09/12/21 06:15 09/12/21 07:56 09/12/21 11:51 09/12/21 13:50 Creatinine 1.3 mg/dL (0.6-1.0) Estimated GFR (Cockcroft-Gault) 40.6 Glucose (Fingerstick) 112 mg/dL (70-99) 140 mg/dL (70-99) Vancomycin Level Trough 18.4 mcg/mL (10.0-20.0) Vancomycin Last Dose Date 09/12/21 Vancomycin Last Dose Time 1350 Test 09/12/21 17:20 09/12/21 19:11 Glucose (Fingerstick) 157 mg/dL (70-99) 166 mg/dL (70-99) Comment Review of Relevant I have reviewed the following items melissa (where applicable) has been applied. Medications: Current Medications Medications (Trade) Dose Ordered Sig/Moiz Route PRN Reason Start Time Stop Time Status Last Admin Dose Admin Vancomycin HCl (Vancomycin Trough Level) 1 each 1X ONCE MC 09/12/21 12:30 09/12/21 12:31 DC 09/12/21 12:30 Acetaminophen/ Hydrocodone Bitart (Lortab ) 1 tab PRN Q4HRS PRN PO PAIN 09/11/21 22:15 09/12/21 05:24 Piperacillin Sod/ Tazobactam Sod 4.5 gm/Sodium Chloride 100 ml @ 200 mls/hr Q6HRS IV 09/12/21 10:00 09/12/21 18:07 Albuterol/ Ipratropium (Duoneb) 3 ml ONCE ONCE NEB 09/12/21 12:30 09/12/21 12:31 DC 09/12/21 12:28 Justifications for Admission Other Justification FLAKO PEPE MD September 12, 2021 21:59
[2021-09-12 23:00] VITALS: BP 118/58
[2021-09-13 03:00] VITALS: BP 114/44
[2021-09-13 04:15] LABS: CREATININE 1.5 mg/dL (0.6-1.0); GFR 34.4
[2021-09-13] MEDS: traMADol 50 MG TABLET PO PRN ×3 (05:42→21:28)
[2021-09-13] MEDS: PIPERACILLIN/TAZOBACTAM 4.5 GM in IV NORMAL SALINE 100ML 100 ML IV SCH ×2 (05:42→12:32)
[2021-09-13] MEDS: VANCOMYCIN 1.5 GM in IV NORMAL SALINE 500ML BAG 500 ML IV SCH (05:43)
[2021-09-13] MEDS: HEPARIN for SUB-Q USE 5,000 UNIT/ML VIAL. SQ SCH ×2 (05:46→14:35)
[2021-09-13 07:00] VITALS: BP 141/73
[2021-09-13] MEDS: INSULIN LISPRO 300 UNITS/3 ML VIAL. SQ SCH ×4 (07:30→21:00)
[2021-09-13] MEDS: LIDOCAINE (700MG/PATCH) PATCH. TP SCH ×2 (09:00→09:17)
[2021-09-13] MEDS: SENNOSIDES 8.6 MG TABLET PO SCH (09:16)
[2021-09-13] MEDS: TAMOXIFEN 10 MG TABLET PO SCH (09:16)
[2021-09-13] MEDS: LACTOBACILLUS RHAMNOSUS GG 1 CAPSULE. PO SCH ×2 (09:17→21:26)
[2021-09-13] MEDS: FUROSEMIDE 40 MG TABLET. PO SCH (09:17)
[2021-09-13] MEDS: DOCUSATE SODIUM 100 MG CAPSULE. PO SCH ×2 (09:17→21:26)
[2021-09-13] MEDS: VENLAFAXINE XR 37.5 MG CAP.ER.24H. PO SCH (09:17)
[2021-09-13] MEDS: rOPINIRole 1 MG TABLET. PO SCH ×3 (09:17→21:28)
[2021-09-13] MEDS: TAMSULOSIN 0.4 MG CAP.ER.24H. PO SCH (09:26)
[2021-09-13] MEDS: CARVEDILOL 6.25 MG TABLET. PO SCH ×2 (09:26→17:31)
[2021-09-13 11:00] VITALS: BP 105/57
--- NOTE | 2021-09-13 13:25 | PDOC ---
[employer] PROGRESS NOTE Date of Service DOS: DATE: 09/13/21 TIME: 13:24 Chief Complaint Chief Complaint Sepsis likely secondary to ongoing cellulitis, inability to care for self. History of type 2 diabetes hypertension hyperlipidemia restless legs depression and CKD -[facility] due to altered mental status sepsis febrile -Concern lower extremities source of infection and wound care pictures noted. -Receiving Zosyn Vanc in emergency room continue this for now. She says she was getting antibiotics at healthcare resort but not sure which I cannot find in records -Wound care consult -If no improvement on current antibiotics consult to infectious disease --> GNR 05/16 bottle positive on 09/12, consult to ID, continue Zosyn -PT OT -DVT prophylaxis -Home meds resumed as indicated History of Present Illness History of Present Illness 09/13 Evaluated examined at bedside. Sitting up in bed not really any complaint. Said breathing treatment was helpful yesterday. Continue IV antibiotics. Waiting on further culture results. Further planning once is available. She did say she would like to return to healthcare [facility] on discharge if possible. 09/12 Patient evaluated examined at bedside. She was in bed watching a movie on her tablet. Said overall feeling a little improved. Was complaining of feeling some chest congestion. We will see how she does with a one-time breathing treatment. 1 of 4 bottles positive for gram-negative rods on blood cultures for the results pending. We will at least go ahead and consult infectious disease regarding this. Discussed with bedside RN. Vitals/I&O Vitals/I&O: Vital Signs Date Time Temp Pulse Resp B/P (MAP) Pulse Ox O2 Delivery O2 Flow Rate FiO2 09/13/21 11:00 98.1 66 18 105/57 (73) 94 Nasal Cannula 4.0 98.1 I & O 09/12/21 09/12/21 09/13/21 15:00 23:00 07:00 Intake Total 200 ml 800 ml Balance 200 ml 800 ml Physical Exam General: Alert, Oriented X3, Cooperative Heart: Regular rate, Normal S1, Normal S2 Lungs: Clear Abdomen: Normal bowel sounds, Soft, No tenderness Extremities: Normal pulses Skin: Other (lower extremities wrapped due to chronic wounds, wound care images reviewed) Labs Labs: Laboratory Tests Test 09/12/21 13:50 09/12/21 17:20 09/12/21 19:11 09/13/21 03:15 Vancomycin Level Trough 18.4 mcg/mL (10.0-20.0) Vancomycin Last Dose Date 09/12/21 Vancomycin Last Dose Time 1350 Glucose (Fingerstick) 157 mg/dL (70-99) 166 mg/dL (70-99) Creatinine 1.5 mg/dL (0.6-1.0) Estimated GFR (Cockcroft-Gault) 34.4 Test 09/13/21 07:40 09/13/21 11:24 Glucose (Fingerstick) 114 mg/dL (70-99) 129 mg/dL (70-99) Comment Review of Relevant I have reviewed the following items melissa (where applicable) has been applied. Justifications for Admission Other Justification FLAKO PEPE MD September 13, 2021 13:25
[2021-09-13 13:58] LABS: BASO % 0 % (0-3); EOS # 0.5 x10^3/uL (0.0-0.7); EOS % 4 % (0-3); HEMATOCRIT 30.7 % (36.0-47.0); HEMOGLOBIN 9.6 g/dL (12.0-15.5); LYMPH # 0.6 x10^3/uL (1.0-4.8); LYMPH % 5 % (24-48); MEAN CORPUSCULAR HEMOGLOBIN 28 pg (25-35); MEAN CORPUSCULAR HGB CONC 31 g/dL (31-37); MEAN CORPUSCULAR VOLUME 89 fL (79-100); MONO # 0.5 x10^3/uL (0.0-1.1); MONO % 4 % (0-9); NEUT # 9.5 x10^3/uL (1.8-7.7); NEUT % 86 % (31-73); PLATELET COUNT 220 x10^3/uL (140-400); RED BLOOD COUNT 3.46 x10^6/uL (3.50-5.40); RED CELL DISTRIBUTION WIDTH 17.1 % (11.5-14.5)
[2021-09-13] MEDS: VANCOMYCIN PER PHARMACY MC PRN (14:40)
--- NOTE | 2021-09-13 14:58 | NUR ---
SS following up with discharge planning. SS reviewed pt chart and discussed with pt RN. Pt is currently requiring oxygen at four liters nasal canula. COVID19 negative. Pt on IV Zosyn and IV Vancomycin. Pt is [facility] resident from [facility], ; fax [phone]. SS will continue to follow for discharge planning.
[2021-09-13 15:00] VITALS: BP 127/38
--- NOTE | 2021-09-13 15:15 | PDOC ---
Infectious Disease Note Subjective: Subjective Patient feeling better today Some cough and shortness of breath On nasal O2 Denies any fevers, nausea, vomiting, diarrhea, abdominal pain Leg pain is improving Leg swelling is stable Vital Signs: Vital Signs Vital Signs Date Time Temp Pulse Resp B/P (MAP) Pulse Ox O2 Delivery O2 Flow Rate FiO2 09/13/21 11:00 98.1 66 18 105/57 (73) 94 Nasal Cannula 4.0 98.1 Physical Exam: PHYSICAL EXAM GENERAL: Alert, oriented x 3 female, sitting upright in chair, in no acute distress. HEENT: Normocephalic, atraumatic. Anicteric. No thrush. NECK: Supple. LUNGS: Clear. HEART: S1, S2. ABDOMEN: Soft, nontender, obese. Bowel sounds present. EXTREMITIES: Bilateral lower extremity swelling, erythema. Wounds wrapped. Pictures from wound care noted. There is superficial multiple blisters present, excoriation present. Coccyx skin breakdown noted. NEUROLOGIC: Alert and oriented x 3, grossly nonfocal. PSYCHIATRIC: Calm and cooperative. DERMATOLOGIC: Warm, dry, no generalized rash except for above. PIV clean. Medications: Inpatient Meds: Medications reviewed. Labs: Lab Laboratory Tests Test 09/12/21 17:20 09/12/21 19:11 09/13/21 03:15 09/13/21 07:40 Glucose (Fingerstick) 157 mg/dL (70-99) 166 mg/dL (70-99) 114 mg/dL (70-99) White Blood Count 11.0 x10^3/uL (4.0-11.0) Red Blood Count 3.46 x10^6/uL (3.50-5.40) Hemoglobin 9.6 g/dL (12.0-15.5) Hematocrit 30.7 % (36.0-47.0) Mean Corpuscular Volume 89 fL (79-100) Mean Corpuscular Hemoglobin 28 pg (25-35) Mean Corpuscular Hemoglobin Concent 31 g/dL (31-37) Red Cell Distribution Width 17.1 % (11.5-14.5) Platelet Count 220 x10^3/uL (140-400) Neutrophils (%) (Auto) 86 % (31-73) Lymphocytes (%) (Auto) 5 % (24-48) Monocytes (%) (Auto) 4 % (0-9) Eosinophils (%) (Auto) 4 % (0-3) Basophils (%) (Auto) 0 % (0-3) Neutrophils # (Auto) 9.5 x10^3/uL (1.8-7.7) Lymphocytes # (Auto) 0.6 x10^3/uL (1.0-4.8) Monocytes # (Auto) 0.5 x10^3/uL (0.0-1.1) Eosinophils # (Auto) 0.5 x10^3/uL (0.0-0.7) Basophils # (Auto) 0.0 x10^3/uL (0.0-0.2) Creatinine 1.5 mg/dL (0.6-1.0) Estimated GFR (Cockcroft-Gault) 34.4 Test 09/13/21 11:24 Glucose (Fingerstick) 129 mg/dL (70-99) Objective: Assessment: 1. Sepsis present on admission from gram-negative bacteremia. 2. Gram-negative bacteremia, 1/4 bottles present on admission. 3. Leukocytosis. 4. Fever. 5. Bilateral lower extremity wounds with possible secondary infection. 6. Bilateral lower extremity cellulitis. 7. Encephalopathy, likely metabolic, improving. Plan: Plan of Care 1. Continue Zosyn. 2. Follow up gram-negative ortega in blood cultures. 3. Continue supportive care. 4. Continue local wound care. 5. Continue supportive care. YVES AJ MD September 13, 2021 15:15
[2021-09-13 17:16] LABS: CALCIUM 8.7 mg/dL (8.5-10.1); CREATININE 1.5 mg/dL (0.6-1.0); GFR 34.4; POTASSIUM 4.3 mmol/L (3.5-5.1)
[2021-09-13] MEDS: PIPERACILLIN/TAZOBACTAM 4.5 GM in IV DEXTROSE 5% 100ML 100 ML IV SCH (17:31)
[2021-09-13 19:00] VITALS: BP 132/66
[2021-09-13] MEDS: EZETIMIBE 10 MG TABLET. PO SCH (21:00)
[2021-09-13 23:05] VITALS: BP 110/53
[2021-09-14] MEDS: HEPARIN for SUB-Q USE 5,000 UNIT/ML VIAL. SQ SCH ×4 (00:02→21:26)
[2021-09-14] MEDS: PIPERACILLIN/TAZOBACTAM 4.5 GM in IV DEXTROSE 5% 100ML 100 ML IV SCH ×4 (00:43→18:38)
[2021-09-14 01:07] LABS: VANC TR 25.9 mcg/mL (10.0-20.0)
[2021-09-14] MEDS: VANCOMYCIN PER PHARMACY MC PRN (02:26)
--- NOTE | 2021-09-14 02:27 | NUR ---
Pharmacy Vancomycin Dosing Note S:Consulted to monitor and dose vancomycin started 09/10/21. O:RADHA SOLIS is a 71 year old F with Cellulitis Sepsis . Height: 5 feet, 4 inches Weight: 150.850794 kg [place] Body Weight: 192.70 Adjusted Body Weight: 176.10 Dosing Weight: Other Antibiotics: ZOSYN 4.5G IV Q6HRS (09/13 -) LABS: Last BUN: 24 Last Creatinine: 1.5 Creatinine Clearance: 52 mL/min Last WBC: 11 Last Procalcitonin: - Tmax (past 24 hours): 98.6 Microbiology: BLOOD CX (09/10): GNR IN 05/16 BOTTLES I/O: 999/ void Drug Levels: Last Trough level: 25.9 on 09/14/21 at 0030 Last dose given 09/13/21 at 0543 Vancomycin Dosing: Loading Dose: 2000 mg x1 Dosing Weight: Target Trough: 15-20 A: Based on: TROUGH P: 1. Begin Vancomycin 1500 mg IV q24h 2. Follow up Trough level on 09/16/21 at 0730 3. Pharmacy will continue to monitor, follow and adjust therapy as needed. HERB WRIGHT RPH, 09/14/21226 Signed: 09/14/21 at 226 by HERB WRIGHT RPH PHA
[2021-09-14 03:41] VITALS: BP 139/58
[2021-09-14 07:00] VITALS: BP 143/47
[2021-09-14] MEDS: INSULIN LISPRO 300 UNITS/3 ML VIAL. SQ SCH ×4 (07:30→21:00)
[2021-09-14] MEDS: LIDOCAINE (700MG/PATCH) PATCH. TP SCH (09:00)
[2021-09-14] MEDS ORDERED: ACETAMINOPHEN 325 MG TABLET. PO PRN (09:15)
[2021-09-14] MEDS: KETOCONAZOLE 2% TOPICAL CREAM 15GM TUBE. TP SCH (09:37)
[2021-09-14] MEDS: FUROSEMIDE 40 MG TABLET. PO SCH (09:38)
[2021-09-14] MEDS: SENNOSIDES 8.6 MG TABLET PO SCH (09:38)
[2021-09-14] MEDS: VENLAFAXINE XR 37.5 MG CAP.ER.24H. PO SCH (09:38)
[2021-09-14] MEDS: LACTOBACILLUS RHAMNOSUS GG 1 CAPSULE. PO SCH ×2 (09:39→21:22)
[2021-09-14] MEDS: VANCOMYCIN 1.5 GM in IV NORMAL SALINE 500ML BAG 500 ML IV SCH (09:39)
[2021-09-14] MEDS: rOPINIRole 1 MG TABLET. PO SCH ×3 (09:39→21:22)
[2021-09-14] MEDS: CARVEDILOL 6.25 MG TABLET. PO SCH ×2 (09:39→18:39)
[2021-09-14] MEDS: DOCUSATE SODIUM 100 MG CAPSULE. PO SCH ×2 (09:39→21:22)
[2021-09-14] MEDS: TAMSULOSIN 0.4 MG CAP.ER.24H. PO SCH (09:40)
[2021-09-14] MEDS: TAMOXIFEN 10 MG TABLET PO SCH (09:53)
--- NOTE | 2021-09-14 10:50 | NUR ---
SS following up with discharge planning. SS reviewed pt chart and discussed with pt RN. Pt is [facility] resident from [facility], ; fax [phone]. COVID19 negative. Pt on IV Vancomycin and IV Zosyn. Pt requiring oxygen at two liters nasal canula. Clinical updates sent to [facility]. SS will continue to follow for discharge planning.
[2021-09-14 11:00] VITALS: BP 119/53
--- NOTE | 2021-09-14 12:49 | PDOC ---
Infectious Disease Note Subjective: Subjective Patient feeling better today Some cough and shortness of breath On nasal O2 Denies any fevers, nausea, vomiting, diarrhea, abdominal pain Leg pain is improving Leg swelling is stable Vital Signs: Vital Signs Vital Signs Date Time Temp Pulse Resp B/P (MAP) Pulse Ox O2 Delivery O2 Flow Rate FiO2 09/14/21 11:00 97.8 65 20 119/53 (75) 94 Nasal Cannula 2.0 97.8 Physical Exam: PHYSICAL EXAM GENERAL: Alert, oriented x 3 female, sitting upright in chair, in no acute distress. HEENT: Normocephalic, atraumatic. Anicteric. No thrush. NECK: Supple. LUNGS: Clear. HEART: S1, S2. ABDOMEN: Soft, nontender, obese. Bowel sounds present. EXTREMITIES: Bilateral lower extremity swelling, erythema. Wounds wrapped. Pictures from wound care noted. There is superficial multiple blisters present, excoriation present. Coccyx skin breakdown noted. NEUROLOGIC: Alert and oriented x 3, grossly nonfocal. PSYCHIATRIC: Calm and cooperative. DERMATOLOGIC: Warm, dry, no generalized rash except for above. PIV clean. Medications: Inpatient Meds: Medications reviewed. Labs: Lab Laboratory Tests Test 09/13/21 16:57 09/13/21 17:00 09/13/21 19:35 09/14/21 00:35 Glucose (Fingerstick) 132 mg/dL (70-99) 142 mg/dL (70-99) Sodium Level 137 mmol/L (136-145) Potassium Level 4.3 mmol/L (3.5-5.1) Chloride Level 98 mmol/L (98-107) Carbon Dioxide Level 32 mmol/L (21-32) Anion Gap 7 (6-14) Blood Urea Nitrogen 27 mg/dL (7-20) Creatinine 1.5 mg/dL (0.6-1.0) Estimated GFR (Cockcroft-Gault) 34.4 Glucose Level 125 mg/dL (70-99) Calcium Level 8.7 mg/dL (8.5-10.1) Vancomycin Level Trough 25.9 mcg/mL (10.0-20.0) Vancomycin Last Dose Date Vancomycin Last Dose Time Test 09/14/21 07:33 09/14/21 11:18 Glucose (Fingerstick) 111 mg/dL (70-99) 120 mg/dL (70-99) Micro ------- ----- RUN DATE: 09/14/21 [facility] *LIVE* PAGE 1 RUN TIME: 1056 Specimen Inquiry PATIENT: RADHA SOLIS ACCT: [id number] LOC: [address] [place] [address] U: [id number] AGE/SX: 71/F ROOM: [facility] RE09/10/[address]: FLAKO PONCE MD : 1950 BED: 1 DIS: STATUS: ADM IN TLOC: SPEC #: [id number] SUSAN: 09/10/21 STATUS: COMP REQ #: [id number] RECD: 09/10/[address]: WILBERTO MCNEIL APRN SOURCE: BLOOD ENTR: 09/12/21 [facility] DR: INDIO EAST [facility]: BLOOD CULT[facility]* Procedure Result BLOOD CULTURE Final GRAM POSITIVE RODS FINAL ID= CORYNEBACTERIUM AURIMUCOSUM GR Growth of organism in only one of multiple sets; isolation does not necessarily indicate infection. Contact Microbiology Lab if further testing is clinically warranted. Testing performed by [address] [address] regional operations director: Jennifer Bryan MD RUN DATE: 09/14/21 [facility] *LIVE* PAGE 1 RUN TIME: 1056 Specimen Inquiry PATIENT: RADHA SOLIS ACCT: [id number] LOC: [address] [place] [address] U: [id number] AGE/SX: 71/F ROOM: [facility] RE09/10/[address]: FLAKO PONCE MD : 1950 BED: 1 DIS: STATUS: ADM IN TLOC: -- SPEC #: [id number] SUSAN: 09/10/21 STATUS: COMP REQ #: [id number] RECD: 09/10/[address] [facility] [address]: WILBERTO MCNEIL APRN SOURCE: BLOOD ENTR: 09/10/21 [facility] DR: INDIO EAST APRN [facility]: ORDERED: BCULT Procedure Result BLOOD CULTURE Final GRAM NEGATIVE RODS IN 1 OF 4 BOTTLES;REPRESENTING 2 SETS DRAWN. THE RESULT WAS CALLED TO ALICIA MORTENSEN(5N)ON 09/12/21 AT 0817 BY [employer]. THE BLOOD CULTURE HAS BEEN SENT TO [facility] FOR FURTHER WORKUP. Objective: Assessment: 1. Sepsis present on admission from gram-negative bacteremia. 2. Gram-negative bacteremia, 1/4 bottles present on admission.No ID yet 3. Leukocytosis. 4. Fever. 5. Bilateral lower extremity wounds with possible secondary infection. 6. Bilateral lower extremity cellulitis. 7. Encephalopathy, likely metabolic, improving. CORYNEBACTERIUM AURIMUCOSUM bacteremia 1/4 bottles Likely contaminant Plan: Plan of Care 1. Continue Zosyn. 2. Follow up gram-negative ortega in blood cultures. GPR in BC likely contaminant 3. Continue supportive care. 4. Continue local wound care. 5. Continue supportive care. YVES AJ MD September 14, 2021 12:49
[2021-09-14 15:00] VITALS: BP 135/57
[2021-09-14] MEDS: traMADol 50 MG TABLET PO PRN (15:29)
[2021-09-14 19:00] VITALS: BP 177/61
[2021-09-14] MEDS: EZETIMIBE 10 MG TABLET. PO SCH (21:22)
--- NOTE | 2021-09-14 21:43 | PDOC ---
[employer] PROGRESS NOTE Date of Service DOS: DATE: 09/14/21 TIME: 21:42 Chief Complaint Chief Complaint Sepsis likely secondary to ongoing cellulitis, inability to care for self. History of type 2 diabetes hypertension hyperlipidemia restless legs depression and CKD -[facility] from [facility] due to altered mental status sepsis febrile -Concern lower extremities source of infection and wound care pictures noted. -Receiving Zosyn Vanc in emergency room continue this for now. She says she was getting antibiotics at [facility] resort but not sure which I cannot find in records -Wound care consult -If no improvement on current antibiotics consult to infectious disease --> GNR 05/16 bottle positive on 09/12, consult to ID, continue Zosyn -PT OT -DVT prophylaxis -Home meds resumed as indicated History of Present Illness History of Present Illness 09/14 Patient evaluated examined at bedside. She was sitting up in bed on her phone. Said she was feeling a little bit tired today. Gram-positive rods likely contaminant. Follow gram-negative rods. Continue IV antibiotics. PT OT. Recommendations from infectious disease team reviewed. Discussed with bedside RN. 09/13 Evaluated examined at bedside. Sitting up in bed not really any complaint. Said breathing treatment was helpful yesterday. Continue IV antibiotics. Waiting on further culture results. Further planning once is available. She did say she would like to return to [facility] on discharge if possible. 09/12 Patient evaluated examined at bedside. She was in bed watching a movie on her tablet. Said overall feeling a little improved. Was complaining of feeling some chest congestion. We will see how she does with a one-time breathing treatment. 1 of 4 bottles positive for gram-negative rods on blood cultures for the results pending. We will at least go ahead and consult infectious disease regarding this. Discussed with bedside RN. Vitals/I&O Vitals/I&O: Vital Signs Date Time Temp Pulse Resp B/P (MAP) Pulse Ox O2 Delivery O2 Flow Rate FiO2 09/14/21 19:00 97.9 67 18 177/61 (99) 95 Nasal Cannula 2.0 97.9 I & O 0 09/13/21 09/13/21 09/14/21 15:00 23:00 07:00 Intake Total 300 ml Balance 300 ml Physical Exam Physical Exam: GENERAL: Alert, oriented x 3 female, sitting upright in chair, in no acute distress. HEENT: Normocephalic, atraumatic. Anicteric. No thrush. NECK: Supple. LUNGS: Clear. HEART: S1, S2. ABDOMEN: Soft, nontender, obese. Bowel sounds present. EXTREMITIES: Bilateral lower extremity swelling, erythema. Wounds wrapped. Pictures from wound care noted. There is superficial multiple blisters present, excoriation present. Coccyx skin breakdown noted. NEUROLOGIC: Alert and oriented x 3, grossly nonfocal. PSYCHIATRIC: Calm and cooperative. DERMATOLOGIC: Warm, dry, no generalized rash except for above. PIV clean. General: Alert, Oriented X3, Cooperative Heart: Regular rate, Normal S1, Normal S2 Lungs: Clear Abdomen: Normal bowel sounds, Soft, No tenderness Extremities: Normal pulses Skin: Other (lower extremities wrapped due to chronic wounds, wound care images reviewed) Labs Labs: Laboratory Tests Test 09/14/21 00:35 09/14/21 07:33 09/14/21 11:18 09/14/21 16:46 Vancomycin Level Trough 25.9 mcg/mL (10.0-20.0) Vancomycin Last Dose Date Vancomycin Last Dose Time Glucose (Fingerstick) 111 mg/dL (70-99) 120 mg/dL (70-99) 127 mg/dL (70-99) Test 09/14/21 18:49 Glucose (Fingerstick) 150 mg/dL (70-99) Comment Review of Relevant I have reviewed the following items melissa (where applicable) has been applied. Medications: Current Medications Medications (Trade) Dose Ordered Sig/Moiz Route PRN Reason Start Time Stop Time Status Last Admin Dose Admin Vancomycin HCl (Vancomycin Trough Level) 1 each 1X ONCE MC 09/14/21 00:30 09/14/21 00:31 DC 09/14/21 00:30 Vancomycin HCl 1.5 gm/Sodium Chloride 500 ml @ 250 mls/hr Q24H IV 09/14/21 08:00 09/14/21 09:39 Acetaminophen (Tylenol) 650 mg PRN Q6HRS PRN PO MILD PAIN / TEMP > 100.3'F 09/14/21 09:15 09/14/21 09:38 Justifications for Admission Other Justification FLAKO PEPE MD September 14, 2021 21:43
[2021-09-14 22:50] VITALS: BP 143/63
[2021-09-15] MEDS: PIPERACILLIN/TAZOBACTAM 4.5 GM in IV DEXTROSE 5% 100ML 100 ML IV SCH ×4 (00:06→17:25)
[2021-09-15 02:51] VITALS: BP 143/65
[2021-09-15] MEDS: traMADol 50 MG TABLET PO PRN ×2 (04:18→21:42)
[2021-09-15] MEDS: HEPARIN for SUB-Q USE 5,000 UNIT/ML VIAL. SQ SCH ×3 (05:57→21:51)
[2021-09-15 07:00] VITALS: BP 150/64
[2021-09-15] MEDS: INSULIN LISPRO 300 UNITS/3 ML VIAL. SQ SCH ×4 (07:30→21:00)
[2021-09-15] MEDS: KETOCONAZOLE 2% TOPICAL CREAM 15GM TUBE. TP SCH (09:00)
[2021-09-15] MEDS: LIDOCAINE (700MG/PATCH) PATCH. TP SCH (09:00)
[2021-09-15] MEDS: TAMSULOSIN 0.4 MG CAP.ER.24H. PO SCH (09:42)
[2021-09-15] MEDS: VANCOMYCIN 1.5 GM in IV NORMAL SALINE 500ML BAG 500 ML IV SCH (09:42)
[2021-09-15] MEDS: CARVEDILOL 6.25 MG TABLET. PO SCH ×2 (09:43→17:00)
[2021-09-15] MEDS: DOCUSATE SODIUM 100 MG CAPSULE. PO SCH ×2 (09:43→21:42)
[2021-09-15] MEDS: LACTOBACILLUS RHAMNOSUS GG 1 CAPSULE. PO SCH ×2 (09:43→21:42)
[2021-09-15] MEDS: SENNOSIDES 8.6 MG TABLET PO SCH (09:43)
[2021-09-15] MEDS: rOPINIRole 1 MG TABLET. PO SCH ×3 (09:43→21:42)
[2021-09-15] MEDS: FUROSEMIDE 40 MG TABLET. PO SCH (09:44)
[2021-09-15] MEDS: VENLAFAXINE XR 37.5 MG CAP.ER.24H. PO SCH (09:44)
[2021-09-15] MEDS: TAMOXIFEN 10 MG TABLET PO SCH (09:50)
[2021-09-15 11:00] VITALS: BP 153/78
[2021-09-15 15:00] VITALS: BP 116/52
--- NOTE | 2021-09-15 15:09 | PDOC ---
Infectious Disease Note Subjective: Subjective Patient remains on nasal O2 did not sleep well Denies any fevers, nausea, vomiting, diarrhea, abdominal pain Leg pain is improving Leg swelling is stable Vital Signs: Vital Signs Vital Signs Date Time Temp Pulse Resp B/P (MAP) Pulse Ox O2 Delivery O2 Flow Rate FiO2 09/15/21 11:00 97.4 66 20 153/78 (103) 99 Room Air 97.4 09/15/21 08:00 2.0 Physical Exam: PHYSICAL EXAM GENERAL: Alert, oriented x 3 female, sitting upright in chair, in no acute distress. HEENT: Normocephalic, atraumatic. Anicteric. No thrush. NECK: Supple. LUNGS: Clear. HEART: S1, S2. ABDOMEN: Soft, nontender, obese. Bowel sounds present. EXTREMITIES: Bilateral lower extremity swelling, erythema. Wounds wrapped. Pictures from wound care noted. There is superficial multiple blisters present, excoriation present. Coccyx skin breakdown noted. NEUROLOGIC: Alert and oriented x 3, grossly nonfocal. PSYCHIATRIC: Calm and cooperative. DERMATOLOGIC: Warm, dry, no generalized rash except for above. PIV clean. Medications: Inpatient Meds: Medications reviewed. Labs: Lab Laboratory Tests Test 09/14/21 16:46 09/14/21 18:49 09/15/21 07:42 09/15/21 11:09 Glucose (Fingerstick) 127 mg/dL (70-99) 150 mg/dL (70-99) 91 mg/dL (70-99) 115 mg/dL (70-99) Micro RUN DATE: 09/14/21 [facility] *LIVE* PAGE 1 RUN TIME: 9580 Specimen Inquiry PATIENT: RADHA SOLIS ACCT: [id number] LOC: [address] [place] [address] U: [id number] AGE/SX: 71/F ROOM: [facility] RE09/10/[address]: FLAKO PONCE MD : 1950 BED: 1 DIS: STATUS: ADM IN TLOC: SPEC #: [id number] SUSAN: 09/10/21 STATUS: COMP REQ #: [id number] RECD: 09/10/[address] [facility] [address]: WILBERTO MCNEIL APRN SOURCE: BLOOD ENTR: 09/10/21 [facility] [address]: INDIO EAST APRN [facility]: ORDERED: BCULT ---- -------- Procedure Result BLOOD CULTURE Final GRAM NEGATIVE RODS IN 1 OF 4 BOTTLES;REPRESENTING 2 SETS DRAWN. THE RESULT WAS CALLED TO ALICIA MORTENSEN(5N)ON 09/12/21 AT 0817 BY [employer]. THE BLOOD CULTURE HAS BEEN SENT TO [facility] FOR FURTHER WORKUP. Objective: Assessment: 1. Sepsis present on admission from gram-negative bacteremia. 2. Gram-negative bacteremia, 1/4 bottles present on admission.No ID yet 3. Leukocytosis. 4. Fever. 5. Bilateral lower extremity wounds with possible secondary infection. 6. Bilateral lower extremity cellulitis. 7. Encephalopathy, likely metabolic, improving. CORYNEBACTERIUM AURIMUCOSUM bacteremia 1/4 bottles Likely contaminant Plan: Plan of Care 1. Continue Zosyn. 2. Follow up gram-negative ortega in blood cultures.still no ID GPR in BC likely contaminant 3. Continue supportive care. 4. Continue local wound care. 5. Continue supportive care. YVES AJ MD September 15, 2021 15:09
[2021-09-15] MEDS: VANCOMYCIN PER PHARMACY MC PRN (15:26)
--- NOTE | 2021-09-15 16:07 | NUR ---
SS following up with discharge planning. SS reviewed pt chart and discussed with pt RN. Pt is [facility] resident from [facility], ; fax [phone]. COVID19 negative. Pt on IV Vancomycin and IV Zosyn. Pt is currently on room air. SS will continue to follow for discharge planning.
[2021-09-15 19:00] VITALS: BP 137/63
[2021-09-15] MEDS: EZETIMIBE 10 MG TABLET. PO SCH (21:42)
[2021-09-15 23:01] VITALS: BP 144/55
[2021-09-16 03:00] VITALS: BP 132/60
[2021-09-16] MEDS: PIPERACILLIN/TAZOBACTAM 4.5 GM in IV DEXTROSE 5% 100ML 100 ML IV SCH ×3 (05:43→12:41)
[2021-09-16] MEDS: HEPARIN for SUB-Q USE 5,000 UNIT/ML VIAL. SQ SCH ×3 (05:44→22:00)
[2021-09-16 07:00] VITALS: BP 137/63
[2021-09-16] MEDS: INSULIN LISPRO 300 UNITS/3 ML VIAL. SQ SCH ×4 (07:23→20:54)
[2021-09-16 07:58] LABS: CREATININE 1.5 mg/dL (0.6-1.0); GFR 34.4
[2021-09-16 08:06] LABS: VANC TR 23.7 mcg/mL (10.0-20.0)
[2021-09-16] MEDS: KETOCONAZOLE 2% TOPICAL CREAM 15GM TUBE. TP SCH (09:00)
[2021-09-16] MEDS: LIDOCAINE (700MG/PATCH) PATCH. TP SCH (09:00)
[2021-09-16] MEDS: LACTOBACILLUS RHAMNOSUS GG 1 CAPSULE. PO SCH ×2 (09:21→21:55)
[2021-09-16] MEDS: FUROSEMIDE 40 MG TABLET. PO SCH (09:21)
[2021-09-16] MEDS: TAMOXIFEN 10 MG TABLET PO SCH (09:21)
[2021-09-16] MEDS: TAMSULOSIN 0.4 MG CAP.ER.24H. PO SCH (09:22)
[2021-09-16] MEDS: VENLAFAXINE XR 37.5 MG CAP.ER.24H. PO SCH (09:22)
[2021-09-16] MEDS: DOCUSATE SODIUM 100 MG CAPSULE. PO SCH ×2 (09:22→21:00)
[2021-09-16] MEDS: VANCOMYCIN 1.5 GM in IV NORMAL SALINE 500ML BAG 500 ML IV SCH (09:22)
[2021-09-16] MEDS: SENNOSIDES 8.6 MG TABLET PO SCH (09:22)
[2021-09-16] MEDS: rOPINIRole 1 MG TABLET. PO SCH ×3 (09:22→21:56)
[2021-09-16] MEDS: traMADol 50 MG TABLET PO PRN (09:23)
[2021-09-16] MEDS: CARVEDILOL 6.25 MG TABLET. PO SCH ×2 (09:23→16:35)
[2021-09-16 11:00] VITALS: BP 120/56
--- NOTE | 2021-09-16 12:09 | PDOC ---
[employer] PROGRESS NOTE Date of Service DOS: Late entry for September 15 Chief Complaint Chief Complaint Sepsis likely secondary to ongoing cellulitis, inability to care for self. H istory of type 2 diabetes hypertension hyperlipidemia restless legs depression and CKD -Sent from [facility] overnight due to altered mental status sepsis febrile -Concern lower extremities source of infection and wound care pictures noted. -Receiving Zosyn Vanc in emergency room continue this for now. She says she was getting antibiotics at healthcare resort but not sure which I cannot find in records -Wound care consult -If no improvement on current antibiotics consult to infectious disease --> GNR 05/16 bottle positive on 09/12, consult to ID, continue Zosyn -PT OT -DVT prophylaxis -Home meds resumed as indicated History of Present Illness History of Present Illness 09/15 Patient evaluated examined at bedside. Resting in bed says she did not sleep well last night. Continuing IV antibiotics. Infectious disease recommendations reviewed. Discussed with bedside RN. Awaiting further culture results. 09/14 Patient evaluated examined at bedside. She was sitting up in bed on her phone. Said she was feeling a little bit tired today. Gram-positive rods likely contaminant. Follow gram-negative rods. Continue IV antibiotics. PT OT. Recommendations from infectious disease team reviewed. Discussed with bedside RN. 09/13 Evaluated examined at bedside. Sitting up in bed not really any complaint. Said breathing treatment was helpful yesterday. Continue IV antibiotics. Waiting on further culture results. Further planning once is available. She did say she would like to return to healthcare resort on discharge if possible. 09/12 Patient evaluated examined at bedside. She was in bed watching a movie on her tablet. Said overall feeling a little improved. Was complaining of feeling some chest congestion. We will see how she does with a one-time breathing treatment. 1 of 4 bottles positive for gram-negative rods on blood cultures for the results pending. We will at least go ahead and consult infectious disease regarding this. Discussed with bedside RN. Vitals/I&O Vitals/I&O: Vital Signs Date Time Temp Pulse Resp B/P (MAP) Pulse Ox O2 Delivery O2 Flow Rate FiO2 09/16/21 11:00 98.5 76 18 120/56 (77) 95 Nasal Cannula 2.0 98.5 I & O 09/15/21 09/15/21 09/16/21 15:00 23:00 07:00 Intake Total 240 ml 490 ml 800 ml Balance 240 ml 490 ml 800 ml Physical Exam Physical Exam: GENERAL: Alert, oriented x 3 female, sitting upright in chair, in no acute distress. HEENT: Normocephalic, atraumatic. Anicteric. No thrush. NECK: Supple. LUNGS: Clear. HEART: S1, S2. ABDOMEN: Soft, nontender, obese. Bowel sounds present. EXTREMITIES: Bilateral lower extremity swelling, erythema. Wounds wrapped. Pictures from wound care noted. There is superficial multiple blisters present, excoriation present. Coccyx skin breakdown noted. NEUROLOGIC: Alert and oriented x 3, grossly nonfocal. PSYCHIATRIC: Calm and cooperative. DERMATOLOGIC: Warm, dry, no generalized rash except for above. PIV clean. General: Alert, Oriented X3, Cooperative Heart: Regular rate, Normal S1, Normal S2 Lungs: Clear Abdomen: Normal bowel sounds, Soft, No tenderness Extremities: Normal pulses Skin: Other (lower extremities wrapped due to chronic wounds, wound care images reviewed) Labs Labs: Laboratory Tests Test 09/15/21 16:43 09/15/21 20:32 09/16/21 07:18 09/16/21 07:20 Glucose (Fingerstick) 127 mg/dL (70-99) 119 mg/dL (70-99) 99 mg/dL (70-99) Creatinine 1.5 mg/dL (0.6-1.0) Estimated GFR (Cockcroft-Gault) 34.4 Vancomycin Level Trough 23.7 mcg/mL (10.0-20.0) Vancomycin Last Dose Date 09/15/21 Vancomycin Last Dose Time 0800 Test 09/16/21 11:01 Glucose (Fingerstick) 141 mg/dL (70-99) Comment Review of Relevant I have reviewed the following items melissa (where applicable) has been applied. Medications: Current Medications Medications (Trade) Dose Ordered Sig/Moiz Route PRN Reason Start Time Stop Time Status Last Admin Dose Admin Vancomycin HCl (Vancomycin Trough Level) 1 each 1X ONCE 09/16/21 07:30 09/16/21 07:31 DC 09/16/21 07:30 Justifications for Admission Other Justification FLAKO PEPE MD September 16, 2021 12:09
--- NOTE | 2021-09-16 12:30 | PDOC ---
[employer] PROGRESS NOTE Date of Service DOS: DATE: 09/16/21 TIME: 12:23 Chief Complaint Chief Complaint Sepsis likely secondary to ongoing cellulitis, inability to care for self. History of type 2 diabetes hypertension hyperlipidemia restless legs depression and CKD -[facility] from [facility] due to altered mental status sepsis febrile -Concern lower extremities source of infection and wound care pictures noted. -Receiving Zosyn Vanc in emergency room continue this for now. She says she was getting antibiotics at healthcare resort but not sure which I cannot find in records -Wound care consult -If no improvement on current antibiotics consult to infectious disease --> GNR 05/16 bottle positive on 09/12, consult to ID, continue Zosyn -PT OT -DVT prophylaxis -Home meds resumed as indicated History of Present Illness History of Present Illness 09/16 Seen at bedside doing well. No major complaints to me. Does say that she has improved quite a bit since presentation. Blood cultures have corynebacterium, guessing nonpathogenic. Will see ID recommendations. Continue current antibiotics for now. If continued improvement likely can discharge back to facility Saturday. 09/15 Patient evaluated examined at bedside. Resting in bed says she did not sleep well last night. Continuing IV antibiotics. Infectious disease recommendations reviewed. Discussed with bedside RN. Awaiting further culture results. 09/14 Patient evaluated examined at bedside. She was sitting up in bed on her phone. Said she was feeling a little bit tired today. Gram-positive rods likely contaminant. Follow gram-negative rods. Continue IV antibiotics. PT OT. Recommendations from infectious disease team reviewed. Discussed with bedside RN. 09/13 Evaluated examined at bedside. Sitting up in bed not really any complaint. Said breathing treatment was helpful yesterday. Continue IV antibiotics. Waiting on further culture results. Further planning once is available. She did say she would like to return to healthcare resort on discharge if possible. 09/12 Patient evaluated examined at bedside. She was in bed watching a movie on her tablet. Said overall feeling a little improved. Was complaining of feeling some chest congestion. We will see how she does with a one-time breathing treatment. 1 of 4 bottles positive for gram-negative rods on blood cultures for the results pending. We will at least go ahead and consult infectious disease regarding this. Discussed with bedside RN. Vitals/I&O Vitals/I&O: Vital Signs Date Time Temp Pulse Resp B/P (MAP) Pulse Ox O2 Delivery O2 Flow Rate FiO2 09/16/21 11:00 98.5 76 18 120/56 (77) 95 Nasal Cannula 2.0 98.5 I & O 09/15/21 09/15/21 09/16/21 15:00 23:00 07:00 Intake Total 240 ml 490 ml 800 ml Balance 240 ml 490 ml 800 ml Physical Exam Physical Exam: GENERAL: Alert, oriented x 3 female, sitting upright in chair, in no acute distress. HEENT: Normocephalic, atraumatic. Anicteric. No thrush. NECK: Supple. LUNGS: Clear. HEART: S1, S2. ABDOMEN: Soft, nontender, obese. Bowel sounds present. EXTREMITIES: Bilateral lower extremity swelling, erythema. Wounds wrapped. Pictures from wound care noted. There is superficial multiple blisters present, excoriation present. Coccyx skin breakdown noted. NEUROLOGIC: Alert and oriented x 3, grossly nonfocal. PSYCHIATRIC: Calm and cooperative. DERMATOLOGIC: Warm, dry, no generalized rash except for above. PIV clean. General: Alert, Oriented X3, Cooperative Heart: Regular rate, Normal S1, Normal S2 Lungs: Clear Abdomen: Normal bowel sounds, Soft, No tenderness Extremities: Normal pulses Skin: Other (lower extremities wrapped due to chronic wounds, wound care images reviewed) Labs Labs: Laboratory Tests Test 09/15/21 16:43 09/15/21 20:32 09/16/21 07:18 09/16/21 07:20 Glucose (Fingerstick) 127 mg/dL (70-99) 119 mg/dL (70-99) 99 mg/dL (70-99) Creatinine 1.5 mg/dL (0.6-1.0) Estimated GFR (Cockcroft-Gault) 34.4 Vancomycin Level Trough 23.7 mcg/mL (10.0-20.0) Vancomycin Last Dose Date 09/15/21 Vancomycin Last Dose Time 0800 Test 09/16/21 11:01 Glucose (Fingerstick) 141 mg/dL (70-99) Comment Review of Relevant I have reviewed the following items melissa (where applicable) has been applied. Medications: Current Medications Medications (Trade) Dose Ordered Sig/Moiz Route PRN Reason Start Time Stop Time Status Last Admin Dose Admin Vancomycin HCl (Vancomycin Trough Level) 1 each 1X ONCE 09/16/21 07:30 09/16/21 07:31 DC 09/16/21 07:30 Justifications for Admission Other Justification FLAKO PEPE MD September 16, 2021 12:30
[2021-09-16] MEDS: VANCOMYCIN PER PHARMACY MC PRN (12:36)
--- NOTE | 2021-09-16 12:44 | NUR ---
Pharmacy Vancomycin Dosing Note S:Consulted to monitor and dose vancomycin started 09/10/21. O:RADHA SOLIS is a 71 year old F with Cellulitis Sepsis . Height: 5 feet, 4 inches Weight: 150.853757 kg Miranda Body Weight: 192.70 Adjusted Body Weight: 176.10 Dosing Weight: Other Antibiotics: ZOSYN 4.5G IV Q6HRS (09/13 -) LABS: Last BUN: 27 Last Creatinine: 1.5 Creatinine Clearance: 52 mL/min Last WBC: 11 Last Procalcitonin: - Tmax (past 24 hours): 98.5 Microbiology: BLOOD CX (09/10): GNR IN 05/16 BOTTLES I/O: 720/5 VOIDS Drug Levels: Last Trough level: 23.7 on 09/16/21 at 0720 Last dose given 09/16/21 at 0922 Vancomycin Dosing: Loading Dose: 2000 mg x1 Dosing Weight: Target Trough: 15-20 A: Based on Trough of 23.7: P: 1. Hold Vancomycin. 2. Follow up Random level on 09/17/21 at 2100 3. Pharmacy will continue to monitor, follow and adjust therapy as needed. Sukh Duong [facility], 09/16/21 [id number]
--- NOTE | 2021-09-16 13:04 | PDOC ---
Infectious Disease Note Subjective Subjective Patient is feeling good has no complaints ROS ROS No nausea vomiting she does have loose stool Vital Sign Vital Signs Vital Signs Date Time Temp Pulse Resp B/P (MAP) Pulse Ox O2 Delivery O2 Flow Rate FiO2 09/16/21 11:00 98.5 76 18 120/56 (77) 95 Nasal Cannula 2.0 98.5 Physical Exam PHYSICAL EXAM GENERAL: Alert, oriented x 3 female, sitting upright in chair, in no acute distress. HEENT: Normocephalic, atraumatic. Anicteric. No thrush. NECK: Supple. LUNGS: Clear. HEART: S1, S2. ABDOMEN: Soft, nontender, obese. Bowel sounds present. EXTREMITIES: Bilateral lower extremity swelling, erythema. Wounds wrapped. Pictures from wound care noted. There is superficial multiple blisters present, excoriation present. Coccyx skin breakdown noted. NEUROLOGIC: Alert and oriented x 3, grossly nonfocal. PSYCHIATRIC: Calm and cooperative. DERMATOLOGIC: Warm, dry, no generalized rash except for above. PIV clean. Labs Lab Laboratory Tests Test 09/15/21 16:43 09/15/21 20:32 09/16/21 07:18 09/16/21 07:20 Glucose (Fingerstick) 127 mg/dL (70-99) 119 mg/dL (70-99) 99 mg/dL (70-99) Creatinine 1.5 mg/dL (0.6-1.0) Estimated GFR (Cockcroft-Gault) 34.4 Vancomycin Level Trough 23.7 mcg/mL (10.0-20.0) Vancomycin Last Dose Date 09/15/21 Vancomycin Last Dose Time 0800 Test 09/16/21 11:01 Glucose (Fingerstick) 141 mg/dL (70-99) Micro Microbiology 09/10/21 Blood Culture - Final, Complete Corynebacterium Aurimucosum Gr Objective Assessment 1. Sepsis present on admission from gram-negative bacteremia. Now changed to gram-positive ortega 1 out of 4 is a contaminant 2. 3. Leukocytosis. 4. Fever. 5. Bilateral lower extremity wounds with possible secondary infection. 6. Bilateral lower extremity cellulitis. 7. Encephalopathy, likely metabolic, improving. Plan Plan of Care Blood culture is contaminant Discontinue NEELAM Bolton MD September 16, 2021 13:04
[2021-09-16 15:03] VITALS: BP 144/67
[2021-09-16 19:00] VITALS: BP 126/59
[2021-09-16] MEDS: EZETIMIBE 10 MG TABLET. PO SCH (21:55)
[2021-09-16 23:03] VITALS: BP 120/90
[2021-09-17 04:29] VITALS: BP 152/72
[2021-09-17] MEDS: HEPARIN for SUB-Q USE 5,000 UNIT/ML VIAL. SQ SCH ×3 (06:05→20:44)
[2021-09-17 07:00] VITALS: BP 114/54
[2021-09-17] MEDS: INSULIN LISPRO 300 UNITS/3 ML VIAL. SQ SCH ×4 (07:30→20:34)
[2021-09-17] MEDS: LIDOCAINE (700MG/PATCH) PATCH. TP SCH (09:00)
[2021-09-17] MEDS: SENNOSIDES 8.6 MG TABLET PO SCH (09:00)
[2021-09-17] MEDS: CARVEDILOL 6.25 MG TABLET. PO SCH ×2 (09:11→17:41)
[2021-09-17] MEDS: rOPINIRole 1 MG TABLET. PO SCH ×3 (09:11→20:34)
[2021-09-17] MEDS: DOCUSATE SODIUM 100 MG CAPSULE. PO SCH ×2 (09:11→20:24)
[2021-09-17] MEDS: VENLAFAXINE XR 37.5 MG CAP.ER.24H. PO SCH (09:12)
[2021-09-17] MEDS: TAMSULOSIN 0.4 MG CAP.ER.24H. PO SCH (09:12)
[2021-09-17] MEDS: TAMOXIFEN 10 MG TABLET PO SCH (09:13)
[2021-09-17] MEDS: FUROSEMIDE 40 MG TABLET. PO SCH (09:16)
[2021-09-17] MEDS: LACTOBACILLUS RHAMNOSUS GG 1 CAPSULE. PO SCH ×2 (09:16→20:34)
--- NOTE | 2021-09-17 10:58 | PDOC ---
Infectious Disease Note Subjective: Subjective Patient is feeling good has no complaints Vital Signs: Vital Signs Vital Signs Date Time Temp Pulse Resp B/P (MAP) Pulse Ox O2 Delivery O2 Flow Rate FiO2 09/17/21 09:11 78 114/54 09/17/21 08:00 Nasal Cannula 2.0 09/17/21 07:00 98.1 20 98 98.1 Physical Exam: PHYSICAL EXAM GENERAL: Alert, oriented x 3 female, sitting upright in chair, in no acute distress. HEENT: Normocephalic, atraumatic. Anicteric. No thrush. NECK: Supple. LUNGS: Clear. HEART: S1, S2. ABDOMEN: Soft, nontender, obese. Bowel sounds present. EXTREMITIES: Bilateral lower extremity swelling, erythema. Wound dressing taken down there is superficial multiple blisters present, excoriation present. Right greater than left anteriorly. Coccyx skin breakdown noted. NEUROLOGIC: Alert and oriented x 3, grossly nonfocal. PSYCHIATRIC: Calm and cooperative. DERMATOLOGIC: Warm, dry, no generalized rash except for above. PIV clean. Medications: Inpatient Meds: Medications reviewed. Labs: Lab Laboratory Tests Test 09/16/21 11:01 09/16/21 16:38 09/16/21 20:19 09/17/21 07:21 Glucose (Fingerstick) 141 mg/dL (70-99) 145 mg/dL (70-99) 154 mg/dL (70-99) 98 mg/dL (70-99) Micro RUN DATE: 09/14/21 [facility] *LIVE* PAGE 1 RUN TIME: 3106 Specimen Inquiry PATIENT: RADHA SOLIS ACCT: [id number] LOC: [address] [place] [address] U: [id number] AGE/SX: 71/F ROOM: 510 RE09/10/[address]: FLAKO PONCE MD : 1950 BED: 1 DIS: STATUS: ADM IN TLOC: SPEC #: [id number] SUSAN: 09/10/21 STATUS: COMP REQ #: [id number] RECD: 09/10/[address] [facility] [address]: WILBERTO MCNEIL APRN SOURCE: BLOOD ENTR: 09/10/[address]: INDIO EAST APRN [facility]: ORDERED: BCULT Procedure Result BLOOD CULTURE Final GRAM NEGATIVE RODS IN 1 OF 4 BOTTLES;REPRESENTING 2 SETS DRAWN. THE RESULT WAS CALLED TO ALICIA MARTINEZ)ON 09/12/21 AT 0817 BY [employer]. THE BLOOD CULTURE HAS BEEN SENT TO [facility] FOR FURTHER WORKUP. Objective: Assessment: 1. Sepsis present on admission from gram-negative bacteremia. 2. Gram-negative bacteremia, 1/4 bottles present on admission.No ID yet 3. Leukocytosis. 4. Fever. 5. Bilateral lower extremity wounds with possible secondary infection. 6. Bilateral lower extremity cellulitis. 7. Encephalopathy, likely metabolic, improving. CORYNEBACTERIUM AURIMUCOSUM bacteremia 1/4 bottles Likely contaminant Plan: Plan of Care Blood culture is contaminant Gram-negative ortega in blood culture not reported likely contaminant Start empiric linezolid and Augmentin Local wound care as directed YVES AJ MD September 17, 2021 10:58
[2021-09-17 11:00] VITALS: BP 133/43
--- NOTE | 2021-09-17 11:51 | PDOC ---
[employer] PROGRESS NOTE Date of Service DOS: DATE: 09/17/21 TIME: 11:51 Chief Complaint Chief Complaint Sepsis likely secondary to ongoing cellulitis, inability to care for self. History of type 2 diabetes hypertension hyperlipidemia restless legs depression and CKD -Sent from [facility] overnight due to altered mental status sepsis febrile -Concern lower extremities source of infection and wound care pictures noted. -Receiving Zosyn Vanc in emergency room continue this for now. She says she was getting antibiotics at healthcare resort but not sure which I cannot find in records -Wound care consult -If no improvement on current antibiotics consult to infectious disease --> GNR 05/16 bottle positive on 09/12, consult to ID, continue Zosyn -PT OT -DVT prophylaxis -Home meds resumed as indicated History of Present Illness History of Present Illness 09/17 Evaluated examined at bedside. Doing well no complaints much improved. Antibiotics switched to Augmentin and Zyvox. Infectious disease recommendations reviewed. Should be able to go back to facility tomorrow. 09/16 Seen at bedside doing well. No major complaints to me. Does say that she has i mproved quite a bit since presentation. Blood cultures have corynebacterium, guessing nonpathogenic. Will see ID recommendations. Continue current antibiotics for now. If continued improvement likely can discharge back to facility Saturday. 09/15 Patient evaluated examined at bedside. Resting in bed says she did not sleep well last night. Continuing IV antibiotics. Infectious disease recommendations reviewed. Discussed with bedside RN. Awaiting further culture results. 09/14 Patient evaluated examined at bedside. She was sitting up in bed on her phone. Said she was feeling a little bit tired today. Gram-positive rods likely contaminant. Follow gram-negative rods. Continue IV antibiotics. PT OT. Recommendations from infectious disease team reviewed. Discussed with bedside RN. 09/13 Evaluated examined at bedside. Sitting up in bed not really any complaint. Said breathing treatment was helpful yesterday. Continue IV antibiotics. Waiting on further culture results. Further planning once is available. She did say she would like to return to [facility] on discharge if possible. 09/12 Patient evaluated examined at bedside. She was in bed watching a movie on her tablet. Said overall feeling a little improved. Was complaining of feeling some chest congestion. We will see how she does with a one-time breathing treatment. 1 of 4 bottles positive for gram-negative rods on blood cultures for the results pending. We will at least go ahead and consult infectious disease regarding this. Discussed with bedside RN. Vitals/I&O Vitals/I&O: Vital Signs Date Time Temp Pulse Resp B/P (MAP) Pulse Ox O2 Delivery O2 Flow Rate FiO2 09/17/21 09:11 78 114/54 09/17/21 08:00 Nasal Cannula 2.0 09/17/21 07:00 98.1 20 98 98.1 I & O 09/16/21 09/16/21 09/17/21 15:00 23:00 07:00 Intake Total 450 ml 200 ml Output Total 200 ml 1600 ml Balance 250 ml 200 ml -1600 ml Physical Exam Physical Exam: GENERAL: Alert, oriented x 3 female, sitting upright in chair, in no acute distress. HEENT: Normocephalic, atraumatic. Anicteric. No thrush. NECK: Supple. LUNGS: Clear. HEART: S1, S2. ABDOMEN: Soft, nontender, obese. Bowel sounds present. EXTREMITIES: Bilateral lower extremity swelling, erythema. Wound dressing taken down there is superficial multiple blisters present, excoriation present. Right greater than left anteriorly. Coccyx skin breakdown noted. NEUROLOGIC: Alert and oriented x 3, grossly nonfocal. PSYCHIATRIC: Calm and cooperative. DERMATOLOGIC: Warm, dry, no generalized rash except for above. PIV clean. General: Alert, Oriented X3, Cooperative Heart: Regular rate, Normal S1, Normal S2 Lungs: Clear Abdomen: Normal bowel sounds, Soft, No tenderness Extremities: Normal pulses Skin: Other (lower extremities wrapped due to chronic wounds, wound care images reviewed) Labs Labs: Laboratory Tests Test 09/16/21 16:38 09/16/21 20:19 09/17/21 07:21 09/17/21 11:00 Glucose (Fingerstick) 145 mg/dL (70-99) 154 mg/dL (70-99) 98 mg/dL (70-99) 117 mg/dL (70-99) Comment Review of Relevant I have reviewed the following items melissa (where applicable) has been applied. Justifications for Admission Other Justification FLAKO PEPE MD September 17, 2021 11:51
[2021-09-17] MEDS: AMOXICILLIN/K CLAV 875/125MG TABLET. PO SCH ×2 (12:24→20:33)
[2021-09-17] MEDS: LINEZOLID 600 MG TABLET PO SCH ×2 (12:24→20:33)
[2021-09-17] MEDS: KETOCONAZOLE 2% TOPICAL CREAM 15GM TUBE. TP SCH (12:24)
[2021-09-17 15:00] VITALS: BP 134/62
[2021-09-17 19:00] VITALS: BP 135/62
[2021-09-17] MEDS ORDERED: VANCOMYCIN RANDOM LEVEL. MC ONE (20:00)
[2021-09-17] MEDS: EZETIMIBE 10 MG TABLET. PO SCH (20:33)
[2021-09-17] MEDS: traMADol 50 MG TABLET PO PRN (20:39)
[2021-09-17 23:03] VITALS: BP 159/61
[2021-09-18 03:12] VITALS: BP 144/72
[2021-09-18] MEDS: HEPARIN for SUB-Q USE 5,000 UNIT/ML VIAL. SQ SCH ×2 (06:02→14:00)
[2021-09-18 07:00] VITALS: BP 134/54
[2021-09-18] MEDS: INSULIN LISPRO 300 UNITS/3 ML VIAL. SQ SCH ×2 (07:30→11:30)
[2021-09-18] MEDS: DOCUSATE SODIUM 100 MG CAPSULE. PO SCH (07:56)
[2021-09-18] MEDS: SENNOSIDES 8.6 MG TABLET PO SCH (07:57)
[2021-09-18] MEDS: LIDOCAINE (700MG/PATCH) PATCH. TP SCH (07:57)
[2021-09-18] MEDS: LACTOBACILLUS RHAMNOSUS GG 1 CAPSULE. PO SCH (08:35)
[2021-09-18] MEDS: rOPINIRole 1 MG TABLET. PO SCH ×2 (08:35→13:56)
[2021-09-18] MEDS: KETOCONAZOLE 2% TOPICAL CREAM 15GM TUBE. TP SCH (08:35)
[2021-09-18] MEDS: AMOXICILLIN/K CLAV 875/125MG TABLET. PO SCH (08:35)
[2021-09-18] MEDS: FUROSEMIDE 40 MG TABLET. PO SCH (08:36)
[2021-09-18] MEDS: TAMOXIFEN 10 MG TABLET PO SCH (08:36)
[2021-09-18] MEDS: TAMSULOSIN 0.4 MG CAP.ER.24H. PO SCH (08:36)
[2021-09-18] MEDS: VENLAFAXINE XR 37.5 MG CAP.ER.24H. PO SCH (08:36)
[2021-09-18] MEDS: LINEZOLID 600 MG TABLET PO SCH (08:37)
[2021-09-18] MEDS: CARVEDILOL 6.25 MG TABLET. PO SCH (08:37)
[2021-09-18 11:00] VITALS: BP 118/80
[2021-09-18] MEDS ORDERED: AMOX1TAB11 PO (12:03)
[2021-09-18] MEDS ORDERED: LINE600T12 PO (12:03)
--- NOTE | 2021-09-18 12:14 | SNU/HH DC ---
DISCHARGE ORDERS DISCHARGE INFORMATION: DISCHARGE DATE: September 18, 2021 CONDITION ON DISCHARGE: Guarded CODE STATUS: Code Status: Full POST DISCHARGE ORDERS: ACTIVITY ORDERS: Activity as tolerated DIET AFTER DISCHARGE: ADA WOUND/INCISION CARE: Keep wound elevated, Change dressing (Cleanse wounds, apply contact layer and ABD with kerlix to BLE. Change daily. Coccyx- apply barrier cream BID and PRN), Reinforce dressing PRN OTHER WOUND INSTRUCTIONS: Offloading surface/device: TQ2H, float heels CHECKS AFTER DISCHARGE: CHECKS AFTER DISCHARGE: Check blood press - daily, Weigh Yourself Daily FOLLOW-UP: PHYSICIAN FOLLOW-UP: PCP within 2 weeks of discharge LAB ORDERS FOR FOLLOW-UP: CBC, CMP within 1 week of discharge TREATMENT/EQUIPMENT ORDERS: Physical Therapy For: Evalulation/Treatment Occupational Therapy For: Evaluation/Treatment DISCHARGE MEDICATIONS: Home Meds Active Scripts Linezolid (ZYVOX) 600 Mg Tablet, 600 MG PO BID for cellulitis for 5 Days, #10 TAB Prov:JASPER BOGGS MD 09/18/21 Amoxicillin/Potassium Clav (AMOX TR-K CLV 875-125 MG TAB) 1 Each Tablet, 1 TAB PO BID for cellulitis for 5 Days, #10 TAB Prov:JASPER BOGGS MD 09/18/21 Reported Medications Venlafaxine Hcl (VENLAFAXINE HCL ER) 75 Mg Cap.er.24h, 1 CAP PO DAILY for depre ssion, #90 CAP 3 Refills 09/11/21 Tamsulosin Hcl (FLOMAX) 0.4 Mg Cap.er.24h, 1 CAP PO DAILY for retention, #30 CAP 11 Refills 09/11/21 Tamoxifen Citrate (TAMOXIFEN CITRATE) 20 Mg Tablet, 1 TAB PO DAILY for ca for 30 Days, #30 TAB 0 Refills 09/11/21 Sennosides (SENNA LAXATIVE) 8.6 Mg Tablet, 1 TAB PO DAILY for constipation for 30 Days, #30 TAB 0 Refills 09/11/21 Ropinirole Hcl (ROPINIROLE HCL) 1 Mg Tablet, 1 MG PO TID for parkinsons, TAB 09/11/21 Ondansetron (ONDANSETRON ODT) 4 Mg Tab.rapdis, 2 TAB PO PRN Q6-8HRS for nausea, #16 TAB 09/11/21 Lidocaine (Lidocaine) 1 Each Adh..patch, 1 EACH TP DAILY for left heel pain, PATCH 09/11/21 Furosemide (LASIX) 40 Mg Tablet, 1 TAB PO DAILY for edema for 30 Days, #30 TAB 0 Refills 09/11/21 Hydrocodone Bit/Acetaminophen (HYDROCODONE-APAP 7.5-325 ) 1 Tab Tablet, 1 TAB PO PRN Q6HRS PRN for PAIN, TAB 0 Refills 09/11/21 Ezetimibe (ZETIA) 10 Mg Tablet, 1 TAB PO QHS for hld for 30 Days, #30 TAB 0 Refills 09/11/21 Docusate Sodium (COLACE) 100 Mg Capsule, 1 CAP PO BID for bowel care for 30 Days, #60 CAP 0 Refills 09/11/21 Carvedilol (CARVEDILOL ) 6.25 Mg Tablet, 6.25 MG PO BIDWMEALS for CARDIAC, TAB 09/11/21 JASPER BOGGS MD September 18, 2021 12:14
--- NOTE | 2021-09-18 13:26 | NUR ---
SS following up with discharge planning. SS reviewed pt chart and discussed with pt RN. Pt is LTC resident from [facility], ; fax [phone]. COVID19 negative. Pt is currently requiring oxygen at one liter nasal canula. Discharge orders received for return to facility and sent to [facility]. Pt will discharge today and return to [facility] at 1530. Admitting facility to provide transportation. Pt and pt's RN notified.
--- NOTE | 2021-09-18 13:55 | PDOC ---
Infectious Disease Note Subjective: Subjective Patient is feeling good has no complaints Vital Signs: Vital Signs Vital Signs Date Time Temp Pulse Resp B/P (MAP) Pulse Ox O2 Delivery O2 Flow Rate FiO2 09/18/21 11:00 98.1 76 18 118/80 (93) 92 98.1 09/18/21 08:00 Nasal Cannula 1.0 Physical Exam: PHYSICAL EXAM GENERAL: Alert, oriented x 3 female, sitting upright in chair, in no acute distress. HEENT: Normocephalic, atraumatic. Anicteric. No thrush. NECK: Supple. LUNGS: Clear. HEART: S1, S2. ABDOMEN: Soft, nontender, obese. Bowel sounds present. EXTREMITIES: Bilateral lower extremity swelling, erythema. Wound dressing taken down there is superficial multiple blisters present, excoriation present. Right greater than left anteriorly. Coccyx skin breakdown noted. NEUROLOGIC: Alert and oriented x 3, grossly nonfocal. PSYCHIATRIC: Calm and cooperative. DERMATOLOGIC: Warm, dry, no generalized rash except for above. PIV clean. Medications: Inpatient Meds: Medications reviewed. Labs: Lab Laboratory Tests Test 09/17/21 16:48 09/17/21 20:08 09/18/21 07:24 09/18/21 07:40 Glucose (Fingerstick) 164 mg/dL (70-99) 169 mg/dL (70-99) 103 mg/dL (70-99) SARS-CoV-2 Antigen (Rapid) Negative (NEGATIVE) Test 09/18/21 11:54 Glucose (Fingerstick) 142 mg/dL (70-99) Micro RUN DATE: 09/14/21 [facility] *LIVE* PAGE 1 RUN TIME: 4938 Specimen Inquiry PATIENT: RADHA SOLIS ACCT: [id number] LOC: [address] [place] [address] U: [id number] AGE/SX: 71/F ROOM: [facility] RE09/10/[address]: FLAKO PONCE MD : 1950 BED: 1 DIS: STATUS: ADM IN TLOC: SPEC #: [id number] SUSAN: 09/10/21 STATUS: COMP REQ #: [id number] RECD: 09/10/[address]: WILBERTO MCNEIL APRN SOURCE: BLOOD ENTR: 09/10/[address]: INDIO EAST APRN [facility]: ORDERED: BCULT Procedure Result BLOOD CULTURE Final GRAM NEGATIVE RODS IN 1 OF 4 BOTTLES;REPRESENTING 2 SETS DRAWN. THE RESULT WAS CALLED TO ALICIA MORTENSEN(5N)ON 09/12/21 AT 0817 BY [employer]. THE BLOOD CULTURE HAS BEEN SENT TO [facility] FOR FURTHER WORKUP. Objective: Assessment: 1. Sepsis present on admission from gram-negative bacteremia. 2. Gram-negative bacteremia, 1/4 bottles present on admission.No ID yet 3. Leukocytosis. 4. Fever. 5. Bilateral lower extremity wounds with possible secondary infection. 6. Bilateral lower extremity cellulitis. 7. Encephalopathy, likely metabolic, improving. CORYNEBACTERIUM AURIMUCOSUM bacteremia 1/4 bottles Likely contaminant Plan: Plan of Care Blood culture is contaminant Gram-negative ortega in blood culture not reported so far likely contaminant Continue linezolid and Augmentin for 5 days Local wound care as directed Optimal edema control PT and OT as tolerated Patient can be discharged from ID standpoint YVES AJ MD September 18, 2021 13:55
--- NOTE | 2021-09-18 14:28 | NUR ---
This RN verified with Microbiology, they confirmed that what was grown out of the blood culture was in fact gram +, possibly over or under stained for the gram -. The gram moses was in fact incorrect.
--- NOTE | 2021-09-18 14:53 | NUR ---
This RN attempted and called facility to give report. Made 2 attempts. This RN was on hold from 1438 to 1445. Unable to give report.
[2021-09-18 15:00] VITALS: BP 128/77
--- NOTE | 2021-09-18 16:08 | NUR ---
Patient escorted out by transportation to [facility] with belongings. Report given to Diego GARCIA when she called at 1702.
[2021-09-20 17:02] LABS: PCO2 COOX 38 mmHg (35-46); PO2 COOX 68 mmHg (65-108)
--- NOTE | 2021-09-20 18:25 | PDOC3 ---
[facility]-Discharge Summary Date of Admission: Date of Admission: September 11, 2021 Date of Discharge: Date of Discharge: September 18, 2021 Consults: Consults: Per infectious disease: Blood culture is contaminant Gram-negative ortega in blood culture not reported so far likely contaminant Continue linezolid and Augmentin for 5 days Local wound care as directed Optimal edema control PT and OT as tolerated Patient can be discharged from ID standpoint Hospital Course: Hospital Course: At time of discharge patient was clinically stable and ready to go to healthcare resort. She would continue with linezolid and Augmentin for 5 days and wound care. Rest of hospital course was uneventful 09/17 Evaluated examined at bedside. Doing well no complaints much improved. Antibiotics switched to Augmentin and Zyvox. Infectious disease recommendations reviewed. Should be able to go back to facility tomorrow. 09/16 Seen at bedside doing well. No major complaints to me. Does say that she has improved quite a bit since presentation. Blood cultures have corynebacterium, guessing nonpathogenic. Will see ID recommendations. Continue current antibiotics for now. If continued improvement likely can discharge back to facility Saturday. 5/ Patient evaluated examined at bedside. Resting in bed says she did not sleep well last night. Continuing IV antibiotics. Infectious disease recommendations reviewed. Discussed with bedside RN. Awaiting further culture results. 5 Patient evaluated examined at bedside. She was sitting up in bed on her phone. Said she was feeling a little bit tired today. Gram-positive rods likely contaminant. Follow gram-negative rods. Continue IV antibiotics. PT OT. Recommendations from infectious disease team reviewed. Discussed with bedside RN. 5/4 Evaluated examined at bedside. Sitting up in bed not really any complaint. Said breathing treatment was helpful yesterday. Continue IV antibiotics. Waiting on further culture results. Further planning once is available. She did say she would like to return to healthcare resort on discharge if possible. 5/3 Patient evaluated examined at bedside. She was in bed watching a movie on her tablet. Said overall feeling a little improved. Was complaining of feeling some chest congestion. We will see how she does with a one-time breathing treatment. 1 of 4 bottles positive for gram-negative rods on blood cultures for the results pending. We will at least go ahead and consult infectious disease regarding this. Discussed with bedside RN. 71-year-old female sent to the emergency room overnight from a healthcare resort due to altered mental status fever and sepsis. Patient has been admitted to the healthcare resort since early June for rehab, wound care and IV antibiotics for a chronic cellulitis. Patient unaware what antibiotic she is on could not find in records but she was certain it is an IV antibiotic. No PICC line in place. Apparently yesterday patient was notably altered febrile and requiring oxygen which is not normal for her. Was sent over to the emergency room. No much history will be obtained in the emergency room due to her mental status. Complaining of pain all over. Does not remember much from yesterday. Has been on antibiotics with wound care and therapy but says she is not getting any better. Disposition: Disposition/Orders: D/C to Another Facility Activity: Activity: Resume previous activity Diet: Diet: Cardiac Medications: Home Meds Active Scripts Linezolid (ZYVOX) 600 Mg Tablet, 600 MG PO BID for cellulitis for 5 Days, #10 TAB Prov:JASPER BOGGS MD 09/18/21 Amoxicillin/Potassium Clav (AMOX TR-K CLV 875-125 MG TAB) 1 Each Tablet, 1 TAB PO BID for cellulitis for 5 Days, #10 TAB Prov:JASPER BOGGS MD 09/18/21 Reported Medications Venlafaxine Hcl (VENLAFAXINE HCL ER) 75 Mg Cap.er.24h, 1 CAP PO DAILY for depression, #90 CAP 3 Refills 09/11/21 Tamsulosin Hcl (FLOMAX) 0.4 Mg Cap.er.24h, 1 CAP PO DAILY for retention, #30 CAP 11 Refills 09/11/21 Tamoxifen Citrate (TAMOXIFEN CITRATE) 20 Mg Tablet, 1 TAB PO DAILY for ca for 30 Days, #30 TAB 0 Refills 09/11/21 Sennosides (SENNA LAXATIVE) 8.6 Mg Tablet, 1 TAB PO DAILY for constipation for 30 Days, #30 TAB 0 Refills 09/11/21 Ropinirole Hcl (ROPINIROLE HCL) 1 Mg Tablet, 1 MG PO TID for parkinsons, TAB 09/11/21 Ondansetron (ONDANSETRON ODT) 4 Mg Tab.rapdis, 2 TAB PO PRN Q6-8HRS for nausea, #16 TAB 09/11/21 Lidocaine (Lidocaine) 1 Each Adh..patch, 1 EACH TP DAILY for left heel pain, PATCH 09/11/21 Furosemide (LASIX) 40 Mg Tablet, 1 TAB PO DAILY for edema for 30 Days, #30 TAB 0 Refills 09/11/21 Hydrocodone Bit/Acetaminophen (HYDROCODONE-APAP 7.5-325 ) 1 Tab Tablet, 1 TAB PO PRN Q6HRS PRN for PAIN, TAB 0 Refills 09/11/21 Ezetimibe (ZETIA) 10 Mg Tablet, 1 TAB PO QHS for hld for 30 Days, #30 TAB 0 Refills 09/11/21 Docusate Sodium (COLACE) 100 Mg Capsule, 1 CAP PO BID for bowel care for 30 Days, #60 CAP 0 Refills 09/11/21 Carvedilol (CARVEDILOL ) 6.25 Mg Tablet, 6.25 MG PO BIDWMEALS for CARDIAC, TAB 09/11/21 Scheduled Amoxicillin/Potassium Clav (Amox Tr-K Clv 875-125 Mg Tab), 1 TAB PO BID Carvedilol (Carvedilol ), 6.25 MG PO BIDWMEALS, (Reported) Docusate Sodium (Colace), 1 CAP PO BID, (Reported) Ezetimibe (Zetia), 1 TAB PO QHS, (Reported) Furosemide (Lasix), 1 TAB PO DAILY, (Reported) Lidocaine (Lidocaine), 1 EACH TP DAILY, (Reported) Linezolid (Zyvox), 600 MG PO BID Ondansetron (Ondansetron Odt), 2 TAB PO PRN Q6-8HRS, (Reported) Ropinirole Hcl (Ropinirole Hcl), 1 MG PO TID, (Reported) Sennosides (Senna Laxative), 1 TAB PO DAILY, (Reported) Tamoxifen Citrate (Tamoxifen Citrate), 1 TAB PO DAILY, (Reported) Tamsulosin Hcl (Flomax), 1 CAP PO DAILY, (Reported) Venlafaxine Hcl (Venlafaxine Hcl Er), 1 CAP PO DAILY, (Reported) Scheduled PRN Hydrocodone Bit/Acetaminophen (Hydrocodone-Apap 7.5-325 ), 1 TAB PO PRN Q6HRS PRN for PAIN, (Reported) Total Time: Total Time: Total time spent was 40 minutes in preparing scripts, discharge planning with [facility] and RN and preparing this discharge summary Patient seen and examined on day of discharge. No acute abnormal findings. Justicifation of Admission Dx: Justifications for Admission: Justification of Admission Dx: Yes Sepsis: Bacteremia JASPER BOGGS MD September 20, 2021 18:25
== END 2021-09-18 16:08 | DRG 871 ==
LOC: ER 21:25 → 5 NORTH 23:55
PROVIDERS: ADMIT Internal Medicine; ATTEND Internal Medicine
DX: A41.50 Gram-negative sepsis, unspecified (principal); G93.41 Metabolic encephalopathy; L03.115 Cellulitis of right lower limb; L03.116 Cellulitis of left lower limb; Z68.43 Body mass index [BMI] 50.0-59.9, adult; B96.89 Other specified bacterial agents as the cause of diseases classified elsewhere; E11.22 Type 2 diabetes mellitus with diabetic chronic kidney disease; Z20.822 Contact with and (suspected) exposure to COVID-19; E66.01 Morbid (severe) obesity due to excess calories; E78.5 Hyperlipidemia, unspecified; F32.A Depression, unspecified; G25.81 Restless legs syndrome; I12.9 Hypertensive chronic kidney disease with stage 1 through stage 4 chronic kidney disease, or unspecified chronic kidney disease; J45.909 Unspecified asthma, uncomplicated; N18.9 Chronic kidney disease, unspecified; Z83.3 Family history of diabetes mellitus
CPT/HCPCS: 36415; 70450; 71045; 80048; 80053; 80202; 81001; 82140; 82550; 82565; 82805; 82962; 83605; 83690; 83880; 84484; 85025; 85610; 87040; 87077; 87426; 87428; 93005; 94640; 96361; 96365; 96367; J1644; J1815; J2543; J3010; J3370; J7030; J7040; J7060; U0003; 99285-25; G0378